=== PATIENT | female | born 1965 | race Caucasian/White ===

== ENCOUNTER 2017-07-17 17:59 | Inpatient (IN) ==
--- NOTE | 2017-07-17 18:23 | Emergency Department Note ---
Disposition Clinical Impression: Hyponatremia, Hyperglycemia Altered mental status Qualifiers: Altered mental status type: unspecified Qualified Code(s): R41.82 - Altered mental status, unspecified Suicidal behavior Qualifiers: Attempted self-injury: without attempted self-injury Qualified Code(s): R46.89 - Other symptoms and signs involving appearance and behavior Disposition: Admitted As Inpatient Condition: Good Referrals: NONE,PCP [Primary Care Provider] - Forms: ED Satisfaction Letter, Work/School Release General Adult HPI - General Chief complaint: ED General Medical Stated complaint: psych Time Seen by Provider: 07/17/17 18:08 Source: EMS Mode of arrival: EMS Limitations: altered mental status Nursing Notes Reviewed: Yes Vital Signs Reviewed: Yes - History of Present Illness HPI Narrative: 51-year-old female with a history of diabetes, bipolar disorder who presents to the ER via EMS due to altered mental status and hyperglycemia. History is obtained from EMS. Reports earlier in the day there was concern that the patient was in the passenger seat of the car and grabbed the steering well attempting perhaps to be rhythm off the road. She went home after that. Reports that she has not had her diabetic medications in 2 days. EMS was called and the patient was brought in for evaluation. Her prehospital glucose was over 300. Upon arrival she is alert answering questions appropriately intermittently however she demonstrates thought blocking and attempts to get out of the bed multiple times. She has discussed suicidal ideation to several staff here denies it specifically to me. No other complaints. Pt Subjective Complaint: Altered mental status Onset (ago): unknown Pain Scale: 0 Improves with: nothing Worsens with: nothing - Related Data Home Medications Medication Instructions Recorded Confirmed Albuterol Sulfate [Albuterol 1 puff IH Q4HR 09/03/16 09/03/16 Inhaler] Aspirin Enteric Coated [Aspirin EC] 81 mg PO DAILY 09/03/16 09/03/16 Clopidogrel [Plavix] 75 mg PO DAILY 09/03/16 09/03/16 Insulin Glargine,Hum.rec.anlog 25 unit SQ DAILY 09/03/16 09/03/16 [Lantus Solostar] Isosorbide MONOnitrate (24 HR) 60 mg PO DAILY 09/03/16 09/03/16 [Imdur] Lisinopril [Zestril] 10 mg PO DAILY 09/03/16 09/03/16 Metoprolol Tartrate [Lopressor] 50 mg PO BID 09/03/16 09/03/16 RisperiDONE MICROSPHERES 50 mg IJ AD 09/03/16 09/03/16 [Risperdal Consta] Simvastatin [Zocor] 40 mg PO DAILY 09/03/16 09/03/16 Allergies Allergy/AdvReac Type Severity Reaction Status Date / Time duloxetine [From Cymbalta] AdvReac Vomiting Verified 09/03/16 10:00 Limitations: ROS unobtainable due to patients medical condition Past Medical History - Past Medical History Attestation: Yes The following information was validated with the patient. Source: old records reviewed Medical history: Reports: coronary artery disease, diabetes, hypertension, myocardial infarction, renal disease Surgical history: Reports: coronary bypass (CABG) Psychiatric history: Reports: schizophrenia - Social History Smoking Status: Current every day smoker Smokeless Tobacco Status: No Alcohol use: Reports: none Drug use: Reports: none Physical Exam - General Limitations: altered mental status General appearance: alert, appears intoxicated - Head Head exam: atraumatic, normocephalic - Eye Eye exam: Present: normal appearance - ENT ENT exam: normal exam - Neck Neck exam: Present: normal inspection - Chest Chest inspection: Present: normal inspection, symmetric chest wall rise - Respiratory Respiratory exam: Present: normal lung sounds bilaterally - Cardiovascular Cardiovascular exam: Present: normal rhythm, tachycardia, normal heart sounds - Abdominal Exam Abdominal exam: Present: soft, Non-Tender. Absent: tenderness, distention, rigidity - Extremities Exam Extremities exam: Present: normal inspection, full ROM - Expanded Upper Extremity Exam Shoulder exam: Present: normal inspection, full ROM Arm exam: Present: normal inspection, full ROM Elbow exam: Present: normal inspection, full ROM Forearm/Wrist exam: Present: normal inspection, full ROM Hand exam: Present: normal inspection, full ROM - Expanded Lower Extremity Exam Hip/Pelvis exam: Present: normal inspection, full ROM Upper leg exam: Present: normal inspection, full ROM Knee exam: Present: normal inspection, full ROM Lower leg exam: Present: normal inspection, full ROM Ankle exam: Present: normal inspection, full ROM Foot/toe exam: Present: normal inspection, full ROM - Neurological Exam Neurological exam: Present: alert, other (GCS 14. Nonfocal.) - Expanded Psychiatric Exam Expanded psych exam: Present: poor eye contact, perseverating, refuses to answer - Skin Skin exam: Present: warm, dry Course Course Narrative: Patient seen and examined. [place] slipped due to concern for earlier behavior as well as voicing suicidal ideation here. She is notably tachycardic at 1:30. Concern for potential DKA. We will get labs to evaluate for DKA as well as altered mental status including a head CT. - Reevaluation(s) Reevaluation #1: Family at bedside. Reports that she missed her wrist but also 4 days ago. She did try to grab the wheel and pull the car off the road. Reports that this happened before when her sodium is low. - Consultations Consultation #1: I spoke with the on-call service worker Dr. Suero. Discussed the patient's history and lab findings. He recommends to start fluid restriction. We will stop her IV fluids. He also recommends a urine osmolality. Vital Signs Temperature 97.8 F 07/17/17 18:06 Pulse Rate 129 07/17/17 18:06 Respiratory Rate 20 07/17/17 18:06 Blood Pressure 205/107 07/17/17 18:06 O2 Sat by Pulse Oximetry 95 07/17/17 18:06 Temperature 97.8 F 07/17/17 18:06 Pulse Rate 115 07/17/17 19:27 Respiratory Rate 14 07/17/17 19:27 Blood Pressure 181/88 07/17/17 19:27 O2 Sat by Pulse Oximetry 93 07/17/17 19:27 Oxygen Delivery Oxygen Delivery Room Air Medical Decision Making - [facility] Narrative Medical decision making narrative: 51-year-old female presents due to altered mental status. Concern for suicidal behavior. Mr. roach shot 4 days ago. Noted to be hyponatremic at 114 here with a prior history of psychogenic polydipsia. CT of the head negative. Labs reviewed and otherwise unremarkable. Hyperglycemic. Given IV insulin. Patient has center and pink slipped for suicidal ideation. She is admitted to the hospitalist service for further management. - Lab Data Lab results reviewed: Yes I reviewed the patient's lab results. Result diagrams: 07/17/17 18:11 07/17/17 18:11 Lab Results 07/17/17 07/17/17 07/17/17 Range/Units 18:11 18:11 18:11 WBC 12.6 H (4.3-11.1) K/mcL RBC 4.66 (3.82-4.97) M/mcL Hgb 13.2 (11.5-15.4) g/dL Hct 35.4 (35.3-44.9) % MCV 76.0 L (83.0-100.0) fL MCH 28.3 (28.0-33.3) pg MCHC 37.3 H (31.6-35.5) g/dL RDW 12.3 (11.5-14.5) % Plt Count 245 (140-400) K/mcL MPV 10.9 (9.4-12.4) fL Immature Gran % 0.5 (0-4) % Seg Neutrophils % 77.2 % Lymphocytes % 11.7 % Monocytes % 9.3 % Eosinophils % 1.0 % Basophils % 0.3 % Neutrophils # 9.7 H (1.6-8.9) K/mcL Lymphocytes # 1.5 (0.6-4.6) K/mcL Monocytes # 1.2 (0.0-1.3) K/mcL Eosinophils # 0.1 (0.0-0.6) K/mcL Basophils # 0.0 (0.0-0.2) K/mcL Immature Plt Fraction 8.0 H (1.1-6.1) % VBG pH (7.32-7.42) pH Units VBG pCO2 (41-51) mmHg VBG pO2 (25-50) mmHg VBG HCO3 (21-27) mEq/L Sodium 114 L* (136-145) mEq/L Potassium 3.6 (3.5-5.1) mEq/L Chloride 79 L (98-107) mEq/L Carbon Dioxide 21 L (23-29) mEq/L BUN 16 (6-20) mg/dL Creatinine 1.13 (0.60-1.20) mg/dL Est GFR ( Amer) > 60 (> 60) Est GFR (Non-Af Amer) 51 L (> 60) BUN/Creatinine Ratio 14 (6-26) Glucose 353 H (70-105) mg/dL POC Glucose (70-99) mg/dL Calculated Osmolality 253 L (280-300) Lactic Acid (0.5-2.2) mmol/L Calcium 9.6 (8.6-10.3) mg/dL Magnesium 0.9 L (1.6-2.6) mg/dL Total Bilirubin 0.7 (0.3-1.0) mg/dL Direct Bilirubin 0.2 (0.0-0.2) mg/dL Indirect Bilirubin 0.5 (0.0-1.2) mg/dL AST 25 (13-39) Units/L ALT 18 (7-52) Units/L Alkaline Phosphatase 97 (34-104) Units/L Ammonia (16-53) mcmol/L Serum Total Protein 6.9 (6.4-8.9) g/dL Albumin 4.7 (3.5-5.7) g/dL Globulin 2.2 L (2.4-3.5) g/dL Albumin/Globulin Ratio 2.1 (1.1-2.2) Beta-Hydroxybutyric Acd 0.21 (0.02-0.27) mmol/L TSH 0.994 (0.340-5.600) mcIU/mL Urine Color (Yellow) Urine Clarity (Clear) Urine pH (5.0-8.0) pH Units Ur Specific [place] (1.010-1.025) Urine Protein (Neg-Trace) mg/dL Urine Glucose (UA) (Normal) mg/dL Urine Ketones (Negative) mg/dL Urine Blood (Negative) Urine Nitrite (Negative) Urine Bilirubin (Negative) Urine Urobilinogen (Normal) mg/dL Ur Leukocyte Esterase (Negative) Urine Microscopic RBC (0-3) per hpf Urine Microscopic WBC (0-3) per hpf Ur Squamous Epith Cells (None-Few) per lpf Urine Bacteria (None-Few) per hpf Hyaline Casts (None-Few) per lpf Ur Culture Indicated? (NO) Urine Test (Negative) Salicylates < 2.5 L (15.0-30.0) mg/dL Urine Opiates Screen (Jyrtdz=693) ng/mL Acetaminophen < 10 L (10-20) mcg/mL Ur Barbiturates Screen (Chmest=950) ng/mL Ur Phencyclidine Scrn (Cutoff=25) ng/mL Ur Amphetamines Screen (Ibmbwi=6012) ng/mL U Benzodiazepines Scrn (Kfgfke=039) ng/mL Urine Cocaine Screen (Cutoff= 300) ng/mL U Marijuana (THC) Screen (Cutoff = 50) ng/mL Ethyl Alcohol < 10 (Less than 10) mg/dL 07/17/17 07/17/17 07/17/17 Range/Units 18:11 18:11 18:28 WBC (4.3-11.1) K/mcL RBC (3.82-4.97) M/mcL Hgb (11.5-15.4) g/dL Hct (35.3-44.9) % MCV (83.0-100.0) fL MCH (28.0-33.3) pg MCHC (31.6-35.5) g/dL RDW (11.5-14.5) % Plt Count (140-400) K/mcL MPV (9.4-12.4) fL Immature Gran % (0-4) % Seg Neutrophils % % Lymphocytes % % Monocytes % % Eosinophils % % Basophils % % Neutrophils # (1.6-8.9) K/mcL Lymphocytes # (0.6-4.6) K/mcL Monocytes # (0.0-1.3) K/mcL Eosinophils # (0.0-0.6) K/mcL Basophils # (0.0-0.2) K/mcL Immature Plt Fraction (1.1-6.1) % VBG pH (7.32-7.42) pH Units VBG pCO2 (41-51) mmHg VBG pO2 (25-50) mmHg VBG HCO3 (21-27) mEq/L Sodium (136-145) mEq/L Potassium (3.5-5.1) mEq/L Chloride (98-107) mEq/L Carbon Dioxide (23-29) mEq/L BUN (6-20) mg/dL Creatinine (0.60-1.20) mg/dL Est GFR ( Amer) (> 60) Est GFR (Non-Af Amer) (> 60) BUN/Creatinine Ratio (6-26) Glucose (70-105) mg/dL POC Glucose 335 H (70-99) mg/dL Calculated Osmolality (280-300) Lactic Acid 1.8 (0.5-2.2) mmol/L Calcium (8.6-10.3) mg/dL Magnesium (1.6-2.6) mg/dL Total Bilirubin (0.3-1.0) mg/dL Direct Bilirubin (0.0-0.2) mg/dL Indirect Bilirubin (0.0-1.2) mg/dL AST (13-39) Units/L ALT (7-52) Units/L Alkaline Phosphatase (34-104) Units/L Ammonia 25 (16-53) mcmol/L Serum Total Protein (6.4-8.9) g/dL Albumin (3.5-5.7) g/dL Globulin (2.4-3.5) g/dL Albumin/Globulin Ratio (1.1-2.2) Beta-Hydroxybutyric Acd (0.02-0.27) mmol/L TSH (0.340-5.600) mcIU/mL Urine Color (Yellow) Urine Clarity (Clear) Urine pH (5.0-8.0) pH Units Ur Specific [place] (1.010-1.025) Urine Protein (Neg-Trace) mg/dL Urine Glucose (UA) (Normal) mg/dL Urine Ketones (Negative) mg/dL Urine Blood (Negative) Urine Nitrite (Negative) Urine Bilirubin (Negative) Urine Urobilinogen (Normal) mg/dL Ur Leukocyte Esterase (Negative) Urine Microscopic RBC (0-3) per hpf Urine Microscopic WBC (0-3) per hpf Ur Squamous Epith Cells (None-Few) per lpf Urine Bacteria (None-Few) per hpf Hyaline Casts (None-Few) per lpf Ur Culture Indicated? (NO) Urine Test (Negative) Salicylates (15.0-30.0) mg/dL Urine Opiates Screen (Sncdij=299) ng/mL Acetaminophen (10-20) mcg/mL Ur Barbiturates Screen (Zlvqrp=783) ng/mL Ur Phencyclidine Scrn (Cutoff=25) ng/mL Ur Amphetamines Screen (Xzhwbd=0883) ng/mL U Benzodiazepines Scrn (Dlfjeh=366) ng/mL Urine Cocaine Screen (Cutoff= 300) ng/mL U Marijuana (THC) Screen (Cutoff = 50) ng/mL Ethyl Alcohol (Less than 10) mg/dL 07/17/17 07/17/17 07/17/17 Range/Units 18:31 19:11 19:11 WBC (4.3-11.1) K/mcL RBC (3.82-4.97) M/mcL Hgb (11.5-15.4) g/dL Hct (35.3-44.9) % MCV (83.0-100.0) fL MCH (28.0-33.3) pg MCHC (31.6-35.5) g/dL RDW (11.5-14.5) % Plt Count (140-400) K/mcL MPV (9.4-12.4) fL Immature Gran % (0-4) % Seg Neutrophils % % Lymphocytes % % Monocytes % % Eosinophils % % Basophils % % Neutrophils # (1.6-8.9) K/mcL Lymphocytes # (0.6-4.6) K/mcL Monocytes # (0.0-1.3) K/mcL Eosinophils # (0.0-0.6) K/mcL Basophils # (0.0-0.2) K/mcL Immature Plt Fraction (1.1-6.1) % VBG pH 7.43 H (7.32-7.42) pH Units VBG pCO2 35 L (41-51) mmHg VBG pO2 91 H (25-50) mmHg VBG HCO3 23 (21-27) mEq/L Sodium (136-145) mEq/L Potassium (3.5-5.1) mEq/L Chloride (98-107) mEq/L Carbon Dioxide (23-29) mEq/L BUN (6-20) mg/dL Creatinine (0.60-1.20) mg/dL Est GFR ( Amer) (> 60) Est GFR (Non-Af Amer) (> 60) BUN/Creatinine Ratio (6-26) Glucose (70-105) mg/dL POC Glucose (70-99) mg/dL Calculated Osmolality (280-300) Lactic Acid (0.5-2.2) mmol/L Calcium (8.6-10.3) mg/dL Magnesium (1.6-2.6) mg/dL Total Bilirubin (0.3-1.0) mg/dL Direct Bilirubin (0.0-0.2) mg/dL Indirect Bilirubin (0.0-1.2) mg/dL AST (13-39) Units/L ALT (7-52) Units/L Alkaline Phosphatase (34-104) Units/L Ammonia (16-53) mcmol/L Serum Total Protein (6.4-8.9) g/dL Albumin (3.5-5.7) g/dL Globulin (2.4-3.5) g/dL Albumin/Globulin Ratio (1.1-2.2) Beta-Hydroxybutyric Acd (0.02-0.27) mmol/L TSH (0.340-5.600) mcIU/mL Urine Color Yellow (Yellow) Urine Clarity Clear (Clear) Urine pH 5.0 (5.0-8.0) pH Units Ur Specific [place] 1.014 (1.010-1.025) Urine Protein Negative (Neg-Trace) mg/dL Urine Glucose (UA) >=1000 H (Normal) mg/dL Urine Ketones Negative (Negative) mg/dL Urine Blood Small H (Negative) Urine Nitrite Negative (Negative) Urine Bilirubin Negative (Negative) Urine Urobilinogen Normal (Normal) mg/dL Ur Leukocyte Esterase Negative (Negative) Urine Microscopic RBC 0-3 (0-3) per hpf Urine Microscopic WBC 0-3 (0-3) per hpf Ur Squamous Epith Cells Moderate H (None-Few) per lpf Urine Bacteria None Seen (None-Few) per hpf Hyaline Casts None Seen (None-Few) per lpf Ur Culture Indicated? NO (NO) Urine Test (Negative) Salicylates (15.0-30.0) mg/dL Urine Opiates Screen Negative (Gaiplf=163) ng/mL Acetaminophen (10-20) mcg/mL Ur Barbiturates Screen Negative (Blhmjk=015) ng/mL Ur Phencyclidine Scrn Negative (Cutoff=25) ng/mL Ur Amphetamines Screen Negative (Nrdamo=9439) ng/mL U Benzodiazepines Scrn Negative (Aboaxe=656) ng/mL Urine Cocaine Screen Negative (Cutoff= 300) ng/mL U Marijuana (THC) Screen Negative (Cutoff = 50) ng/mL Ethyl Alcohol (Less than 10) mg/dL 07/17/17 Range/Units 19:11 WBC (4.3-11.1) K/mcL RBC (3.82-4.97) M/mcL Hgb (11.5-15.4) g/dL Hct (35.3-44.9) % MCV (83.0-100.0) fL MCH (28.0-33.3) pg MCHC (31.6-35.5) g/dL RDW (11.5-14.5) % Plt Count (140-400) K/mcL MPV (9.4-12.4) fL Immature Gran % (0-4) % Seg Neutrophils % % Lymphocytes % % Monocytes % % Eosinophils % % Basophils % % Neutrophils # (1.6-8.9) K/mcL Lymphocytes # (0.6-4.6) K/mcL Monocytes # (0.0-1.3) K/mcL Eosinophils # (0.0-0.6) K/mcL Basophils # (0.0-0.2) K/mcL Immature Plt Fraction (1.1-6.1) % VBG pH (7.32-7.42) pH Units VBG pCO2 (41-51) mmHg VBG pO2 (25-50) mmHg VBG HCO3 (21-27) mEq/L Sodium (136-145) mEq/L Potassium (3.5-5.1) mEq/L Chloride (98-107) mEq/L Carbon Dioxide (23-29) mEq/L BUN (6-20) mg/dL Creatinine (0.60-1.20) mg/dL Est GFR ( Amer) (> 60) Est GFR (Non-Af Amer) (> 60) BUN/Creatinine Ratio (6-26) Glucose (70-105) mg/dL POC Glucose (70-99) mg/dL Calculated Osmolality (280-300) Lactic Acid (0.5-2.2) mmol/L Calcium (8.6-10.3) mg/dL Magnesium (1.6-2.6) mg/dL Total Bilirubin (0.3-1.0) mg/dL Direct Bilirubin (0.0-0.2) mg/dL Indirect Bilirubin (0.0-1.2) mg/dL AST (13-39) Units/L ALT (7-52) Units/L Alkaline Phosphatase (34-104) Units/L Ammonia (16-53) mcmol/L Serum Total Protein (6.4-8.9) g/dL Albumin (3.5-5.7) g/dL Globulin (2.4-3.5) g/dL Albumin/Globulin Ratio (1.1-2.2) Beta-Hydroxybutyric Acd (0.02-0.27) mmol/L TSH (0.340-5.600) mcIU/mL Urine Color (Yellow) Urine Clarity (Clear) Urine pH (5.0-8.0) pH Units Ur Specific [place] (1.010-1.025) Urine Protein (Neg-Trace) mg/dL Urine Glucose (UA) (Normal) mg/dL Urine Ketones (Negative) mg/dL Urine Blood (Negative) Urine Nitrite (Negative) Urine Bilirubin (Negative) Urine Urobilinogen (Normal) mg/dL Ur Leukocyte Esterase (Negative) Urine Microscopic RBC (0-3) per hpf Urine Microscopic WBC (0-3) per hpf Ur Squamous Epith Cells (None-Few) per lpf Urine Bacteria (None-Few) per hpf Hyaline Casts (None-Few) per lpf Ur Culture Indicated? (NO) Urine Test Negative (Negative) Salicylates (15.0-30.0) mg/dL Urine Opiates Screen (Vfncmw=654) ng/mL Acetaminophen (10-20) mcg/mL Ur Barbiturates Screen (Nvyapj=080) ng/mL Ur Phencyclidine Scrn (Cutoff=25) ng/mL Ur Amphetamines Screen (Wxdtmb=6902) ng/mL U Benzodiazepines Scrn (Cffbck=069) ng/mL Urine Cocaine Screen (Cutoff= 300) ng/mL U Marijuana (THC) Screen (Cutoff = 50) ng/mL Ethyl Alcohol (Less than 10) mg/dL - Radiology Data Radiology results reviewed: Yes I reviewed the patient's radiology results. Head CT 07/17/17 18:19 IMPRESSION: No acute intracranial abnormality. Dinh chronic sinusitis D/ / Andrew Chavez MD / Andrew Chavez MD Interpreting Provider: Andrew Chavez MD - EKG Data EKG #1 EKG attestation: Yes I reviewed and interpreted this EKG. EKG results narrative: EKG demonstrates sinus tachycardia with a rate of 127. Normal axis. Normal intervals. Normal R-wave progression. No gross ST elevations or depressions. No acute ischemic findings. No significant changes from previous EKG dated . S.B.A.R. - S.B.A.Karen. Situation: Demographics, MOA Background: Presenting Complaint, Relevant PMH, Meds, & Allergies Assessment: Course and respsone to treatment, Exam Concerns, Patient/Family Expectation, Pertinant Lab Results Recommendation: Barrier(s) to disposition, Recommendation based on pending studies, treatments, or consults SYinAMandi Report Given to: Dr. Idania Lu Repor Time: 20:14
[2017-07-17] MEDS ORDERED: 0.9 % Sodium Chloride 1,000 ML ONE (18:25)
[2017-07-17] MEDS: 0.9 % Sodium Chloride 1,000 ML IVC SCH (18:26)
[2017-07-17 18:33] LABS: VBG HCO3 23 mEq/L (21-27); VBG PCO2 35 mmHg (41-51); VBG PH 7.43 pH Units (7.32-7.42); VBG PO2 91 mmHg (25-50)
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
[2017-07-17 18:57] LABS: Acetaminophen < 10 mcg/mL (10-20)
[2017-07-17 19:01] LABS: Alanine Aminotransferase 18 Units/L (7-52); Albumin 4.7 g/dL (3.5-5.7); Albumin/Globulin Ratio 2.1 (1.1-2.2); Alkaline Phosphatase 97 Units/L (34-104); Aspartate Amino Transferase 25 Units/L (13-39); BUN/Creatinine Ratio 14 (6-26); Bilirubin,Direct 0.2 mg/dL (0.0-0.2); Bilirubin,Indirect 0.5 mg/dL (0.0-1.2); Bilirubin,Total 0.7 mg/dL (0.3-1.0); Blood Urea Nitrogen 16 mg/dL (6-20); Calcium 9.6 mg/dL (8.6-10.3); Carbon Dioxide 21 mEq/L (23-29); Chloride 79 mEq/L (98-107); Ethanol < 10 mg/dL (Less than 10); Globulin 2.2 g/dL (2.4-3.5); Glucose 353 mg/dL (70-105); Magnesium 0.9 mg/dL (1.6-2.6); Osmolality,Calculated 253 (280-300); Potassium 3.6 mEq/L (3.5-5.1); Salicylate < 2.5 mg/dL (15.0-30.0); Sodium 114 mEq/L (136-145); Total Protein 6.9 g/dL (6.4-8.9); eGFR For African Americans > 60 (> 60); eGFR For Non-African Americans 51 (> 60)
[2017-07-17 19:03] LABS: Basophils % 0.3 %; Eosinophils # 0.1 K/mcL (0.0-0.6); Hematocrit 35.4 % (35.3-44.9); Hemoglobin 13.2 g/dL (11.5-15.4); Immature Granulocytes % 0.5 % (0-4); Lymphocytes # 1.5 K/mcL (0.6-4.6); Lymphocytes % 11.7 %; Mean Corpuscular Hemoglobin 28.3 pg (28.0-33.3); Mean Platelet Volume 10.9 fL (9.4-12.4); Monocytes # 1.2 K/mcL (0.0-1.3); Monocytes % 9.3 %; Neutrophils # 9.7 K/mcL (1.6-8.9); Platelet Count 245 K/mcL (140-400); Red Blood Count 4.66 M/mcL (3.82-4.97); Red Cell Distribution Width 12.3 % (11.5-14.5); Segmented Neutrophils % 77.2 %
[2017-07-17 19:05] LABS: Mean Corpuscular HGB Conc 37.3 g/dL (31.6-35.5)
[2017-07-17 19:09] LABS: Thyroid Stimulating Hormone 0.994 mcIU/mL (0.340-5.600)
[2017-07-17 19:29] LABS: Bilirubin,Urine Negative (Negative); Blood,Urine Small (Negative); Clarity,Urine Clear (Clear); Color,Urine Yellow (Yellow); Glucose,Urine (UA) >=1000 mg/dL (Normal); Ketones,Urine Negative (Negative); Leukocyte Esterase,Urine Negative (Negative); Nitrite,Urine Negative (Negative); Protein,Urine Negative (Neg-Trace); Specific Gravity,Urine 1.014 (1.010-1.025); Urobilinogen,Urine Normal (Normal)
[2017-07-17 19:39] LABS: Amphetamine Screen,Urine Negative ng/mL (Cutoff=1000); Barbiturate Screen,Urine Negative ng/mL (Cutoff=200); Benzodiazepines Screen,Urine Negative ng/mL (Cutoff=200); Cannabinoid Screen,Urine Negative ng/mL (Cutoff = 50); Cocaine Screen,Urine Negative ng/mL (Cutoff= 300); Opiate Screen,Urine Negative ng/mL (Cutoff=300); Phencyclidine Screen,Urine Negative ng/mL (Cutoff=25)
[2017-07-17] MEDS ORDERED: Insulin Regular, Human 100 UNIT/ML IV ONE (19:57)
[2017-07-17 20:02] LABS: Bacteria,Urine None Seen per hpf (None-Few); Hyaline Casts,Urine None Seen per lpf (None-Few); RBC,Urine 0-3 per hpf (0-3); Squamous Epithelial Cell,Urine Moderate per lpf (None-Few); WBC,Urine 0-3 per hpf (0-3)
[2017-07-18] MEDS ORDERED: *HR* Dextrose 50 % in Water (Syg) 50 ML SYRINGE IVP PRN (01:17)
[2017-07-18] MEDS ORDERED: Dextrose Gel 15 GM/37.5 ML TUBE PO PRN ×2 (01:17)
[2017-07-18] MEDS ORDERED: D5% in Water 1,000 ML IVC PRN (01:17)
[2017-07-18] MEDS ORDERED: Insulin Regular, Human 100 UNIT/ML SQ ONE (01:30)
[2017-07-18] MEDS ORDERED: OLANZapine 10 MG VIAL IM PRN (02:00)
[2017-07-18] MEDS ORDERED: *HR* Magnesium Sulfate 1 GM/2 ML VIAL IM STA ×2 (02:23→04:27)
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
[2017-07-18] MEDS ORDERED: Acetaminophen 325 MG TABLET PO PRN (03:37)
[2017-07-18] MEDS ORDERED: Naloxone 0.4 MG/ML INJ IVP PRN (03:37)
[2017-07-18] MEDS: Insulin DETEMIR 100 UNIT/ML X5UNITS SQ SCH ×2 (03:45→23:09)
[2017-07-18] MEDS: Insulin LISPRO 300 UNITS/3 ML VIAL SQ SCH ×6 (03:46→21:31)
[2017-07-18] MEDS ORDERED: *HR* Enoxaparin 40 MG/0.4 ML SYRINGE SQ SCH (06:00)
[2017-07-18 06:47] LABS: Eosinophils % 1.2 %; Red Cell Distribution Width 12.3 % (11.5-14.5)
[2017-07-18 06:48] LABS: Basophils # 0.1 K/mcL (0.0-0.2); Basophils % 0.4 %; Eosinophils # 0.2 K/mcL (0.0-0.6); Hematocrit 38.4 % (35.3-44.9); Hemoglobin 14.2 g/dL (11.5-15.4); Immature Granulocytes % 0.4 % (0-4); Lymphocytes # 2.1 K/mcL (0.6-4.6); Lymphocytes % 13.7 %; Mean Corpuscular Hemoglobin 28.1 pg (28.0-33.3); Mean Corpuscular Volume 75.9 fL (83.0-100.0); Mean Platelet Volume 10.4 fL (9.4-12.4); Monocytes # 1.4 K/mcL (0.0-1.3); Monocytes % 8.9 %; Neutrophils # 11.6 K/mcL (1.6-8.9); Platelet Count 262 K/mcL (140-400); Red Blood Count 5.06 M/mcL (3.82-4.97); Segmented Neutrophils % 75.4 %
[2017-07-18 07:14] LABS: BUN/Creatinine Ratio 13 (6-26); Blood Urea Nitrogen 12 mg/dL (6-20); Calcium 9.8 mg/dL (8.6-10.3); Carbon Dioxide 25 mEq/L (23-29); Chloride 82 mEq/L (98-107); Glucose 177 mg/dL (70-105); Magnesium 2.2 mg/dL (1.6-2.6); Osmolality,Calculated 246 (280-300); Potassium 3.5 mEq/L (3.5-5.1); Sodium 116 mEq/L (136-145); eGFR For African Americans > 60 (> 60); eGFR For Non-African Americans > 60 (> 60)
[2017-07-18] MEDS ORDERED: Insulin LISPRO 300 UNITS/3 ML VIAL SQ SCH ×2 (07:30→21:00)
--- NOTE | 2017-07-18 08:33 | Event Note ---
Date of Encounter: 07/18/17 Time of Encounter: 08:30 Seen and assessed. Agree with plan per night time hospitalist. Being managed for acute encephalopathy bitaley 2/2 to metabolic derangements vs worsening of underlying pscyh disorder. Contnue Zyprexa. Psych recs appreciated. start on half normal saline for hyponatremia and aim to correct sodium at increments of 4 -6 over 24hrs. Nephrology recs appreciated WBC count also continues to trend up, query sepsis, obtain blood cultures, cxr, start on zosyn empirically. Pt also noted to be tachycardic with increased WBC. Etiology could be sepsis vs dehydration. Continue iV fluids and abx. TSH WNL
--- NOTE | 2017-07-18 08:50 | Electrocardiograph Report ---
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
[2017-07-18 09:11] LABS: Estimated Average Glucose 197 mg/dl; Hemoglobin A1C 8.5 %
--- NOTE | 2017-07-18 09:56 | Nephrology Consult Note ---
Date of Encounter: 07/18/17 Time of Encounter: 09:53 Assessment and Plan (1) Hyponatremia Current Visit: Yes Status: Acute Patient has a history of chronic hyponatremia in the setting of psychiatric illness. She had been on Risperdal which has an incidence of hyponatremia of less than 1%. She reports a vague history but may have a component of polydipsia. Her urine osmolality is inappropriately concentrated. 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 Regarding her recheck thyroid studies as well as adrenal studies to make sure they with are within normal limits. Treatment should consist of fluid restriction of 7503-3575 mL per day. I think we can place her on normal saline and monitor her electrolytes every 6 hours or so. I would not advise placing her on half normal saline because that would just continue to give her excess free water. (2) Bipolar disease, chronic Current Visit: Yes Status: Chronic History of Present Illness - History of Present Illness This is a 51-year-old female who was brought regimen by her family because of mental status changes. History also makes note of some nausea vomiting and decreased oral intake. Patient was noted to have worsening hyponatremia. Her sodium usually ranges from 121-127. This is in the setting of bipolar disorder , schizophrenia, and possible polydipsia. Sodium on admission was 113. Sodium this morning is 116. BUN/creatinine are normal. Potassium is 3.5. Urine osmolality was inappropriately high at 282 but urine glucose was greater than 1000. Patient apparently has poorly controlled diabetes. Vital signs been stable. Patient had a similar episode requiring hospitalization back in September 2016. At that time urine osmolality was 348. Patient takes Risperdal at home. She is currently on Zyprexa. Past Med Surg Social Fam HX - Past Medical History Medical history: coronary artery disease, diabetes, hypertension, myocardial infarction, renal disease Psychiatric history: bipolar, schizophrenia - Past Surgical History Surgical History: coronary bypass (CABG) - Social History Smoking Status: Current every day smoker Smokeless Tobacco Status: No Alcohol use: none Drug use: none Medications and Allergies Aspirin Enteric Coated [Aspirin EC] 81 mg PO DAILY 09/03/16 [History] Clopidogrel [Plavix] 75 mg PO DAILY 09/03/16 [History] Insulin Glargine,Hum.rec.anlog [Lantus Solostar] 25 unit SQ DAILY 09/03/16 [ History] Isosorbide MONOnitrate (24 HR) [Imdur] 60 mg PO DAILY 09/03/16 [History] Lisinopril [Zestril] 10 mg PO DAILY 09/03/16 [History] RisperiDONE MICROSPHERES [Risperdal Consta] 50 mg IJ 2XW 09/03/16 [History] Simvastatin [Zocor] 40 mg PO DAILY 09/03/16 [History] 3 Allergy/AdvReac Type Severity Reaction Status Date / Time duloxetine [From Cymbalta] AdvReac Vomiting Verified 09/03/16 10:00 Review of Systems ROS unobtainable: due to mental status Exam - Vital Signs Vital signs: Initial Vital Signs Temp Pulse Resp BP Pulse Ox 97.8 F 129 20 205/107 95 07/17/17 18:06 07/17/17 18:06 07/17/17 18:06 07/17/17 18:06 07/17/17 18:06 Vital Signs - Last 8 Hours Pulse Resp BP Pulse Ox 07/18/17 06:13 107 20 136/86 97 Intake and Output 07/17/17 07/18/17 07/18/17 23:59 07:59 15:59 Intake Total 360 / 360 Balance 360 / 360 Intake: Oral 360 / 360 Other: # Voids 2 Blood Glucose* 139 87 - General Appearance Exam: Patient is seen in the emergency room. She appears alert. She is somewhat oriented. She however is very vague when it comes to giving any kind of history. Lungs clear to auscultation. Heart regular rate and rhythm was sinus tach at a rate of 125. Abdomen shows normal bowel sounds bruits masses or megaly or tenderness. Lower extremities show no peripheral edema. Results - Lab Results 07/18/17 06:16 07/18/17 06:16 Most recent lab results Calcium 9.8 mg/dL (8.6-10.3) 07/18/17 06:16 Magnesium 2.2 mg/dL (1.6-2.6) 07/18/17 06:16 Consult Discharge Plan - Plan Referrals: NONE,PCP [Primary Care Provider] -
[2017-07-18] MEDS ORDERED: Cosyntropin 250 MCG/2 ML VIAL IVP ONE (09:58)
[2017-07-18] MEDS: Piperacillin/Tazobactam 3.375 GM in 0.9 % Sodium Chloride Mini Bag 100 ML IVPB SCH ×2 (10:16→21:30)
[2017-07-18] MEDS: Aspirin Enteric Coated 81 MG Tablet PO SCH (10:17)
[2017-07-18] MEDS: Isosorbide MONOnitrate (24 HR) 60 MG TAB.ER.24H PO SCH (10:17)
[2017-07-18] MEDS ORDERED: Isovue-370 500 ML INFUS..BTL IV ONE (13:04)
[2017-07-18] MEDS ORDERED: *HR* Metoprolol 5 MG/5 ML VIAL IVP PRN (13:05)
[2017-07-18 13:52] LABS: Troponin I 0.17 ng/mL (< 0.04)
[2017-07-18] MEDS ORDERED: *HR* LORazepam 2 MG/ML VIAL IVP PRN (14:55)
--- NOTE | 2017-07-18 15:24 | Cardiology Consult Note ---
Date of Encounter: 07/18/17 Time of Encounter: 15:21 Assessment and Plan (1) NSTEMI (non-ST elevated myocardial infarction) Current Visit: Yes Status: Acute Initial trops .17 with ischemic LAD changes after BB for rate control. Currently chest pain free. Will start ASA and Heparin IV ACS protocol and repeat troponin as patient is not a reliable historian. Discussion w patient/family: The assessment and plan as outlined above was discussed with the patient and/or family members who expressed understanding and agreement. All questions were answered. Thank you for involving us in the care of your patient. Please call with any questions. History of Present Illness Consult date: 07/18/17 Consult reason: NSTEMI Chief complaint: Confusion History of present illness: Ms. Wilcox is a 51 year old female with hx of CABGx3 presents with confusion, and suicidal ideation found to have sinus tachycardia was given BB and this resulted in chest pain and flipped T waves right sided precordial leads. They are still persistent along with an initial troponin of .17. Currently she is asymtpomatic without any chest pain. EKG however is concerning for ischemia. Patient states has been having chest pain on and off in the past. She follows with Dr. Caballero as an OP. Past Med Surg Social Fam HX - Past Medical History Medical history: coronary artery disease, diabetes, hypertension, myocardial infarction, renal disease Psychiatric history: bipolar, schizophrenia - Past Surgical History Surgical History: coronary bypass (CABG) - Social History Smoking Status: Current every day smoker Smokeless Tobacco Status: No Alcohol use: none Drug use: none Medications and Allergies Aspirin Enteric Coated [Aspirin EC] 81 mg PO DAILY 09/03/16 [History] Clopidogrel [Plavix] 75 mg PO DAILY 09/03/16 [History] Insulin Glargine,Hum.rec.anlog [Lantus Solostar] 25 unit SQ DAILY 09/03/16 [ History] Isosorbide MONOnitrate (24 HR) [Imdur] 60 mg PO DAILY 09/03/16 [History] Lisinopril [Zestril] 10 mg PO DAILY 09/03/16 [History] RisperiDONE MICROSPHERES [Risperdal Consta] 50 mg IJ 2XW 09/03/16 [History] Simvastatin [Zocor] 40 mg PO DAILY 09/03/16 [History] 3 Allergy/AdvReac Type Severity Reaction Status Date / Time duloxetine [From Cymbalta] AdvReac Vomiting Verified 09/03/16 10:00 All Systems Review: The remainder of the systems were reviewed and are negative Physical Examination Vital Signs, Last 4 Hours Temp Pulse Resp BP Pulse Ox 07/18/17 13:53 98.1 F 87 18 125/73 98 General: Conversant, No Apparent Distress HEENT: Atraumatic, Normocephaly, Mucus Membranes Moist Neck: No JVD, Normal carotid pulses Cardiac: Reg Rate and Rhythm, Normal S1 and S2, No Murmur Lungs: Normal Breath Sounds, No Wheeze, Rales, Rhonchi Neuro: Alert and responsive, No focal deficits noted Abdomen: Soft, Non-Tender Skin: No rashes noted on visualized skin Musculoskeletal: No Chest Wall Tenderness Extremities: No Clubbing, No Cyanosis, No Edema, Normal Pulses Results 07/18/17 06:16 07/18/17 12:36 Lab Results 07/18/17 07/18/17 07/18/17 06:16 06:16 06:16 WBC 15.4 H Hgb 14.2 Hct 38.4 Plt Count 262 Sodium 119 L* 116 L* Potassium 3.5 Chloride 82 L Carbon Dioxide 25 BUN 12 Creatinine 0.90 Glucose 177 H Calcium 9.8 Magnesium 2.2 Troponin I TSH 1.010 07/18/17 12:36 WBC Hgb Hct Plt Count Sodium 117 L* Potassium Chloride Carbon Dioxide BUN Creatinine Glucose Calcium Magnesium Troponin I 0.17 H* TSH Consult Discharge Plan - Plan Referrals: NONE,PCP [Primary Care Provider] -
[2017-07-18] MEDS ORDERED: *HR* Heparin 5,000 UNIT/ML VIAL IVP PRN ×2 (15:40)
[2017-07-18] MEDS ORDERED: *HR* Heparin 5,000 UNIT/ML VIAL IVP ONE (15:40)
[2017-07-18] MEDS ORDERED: Heparin 25,000 UNIT/500 ML D5W 25,000 UNIT/500 ML BAG IVC SCH (15:45)
[2017-07-18] MEDS ORDERED: Aspirin 325 MG TABLET PO ONE (15:51)
[2017-07-18] MEDS: Aspirin 81 MG TAB.CHEW PO SCH (16:31)
[2017-07-18 16:55] LABS: INR 1.1; Prothrombin Time 12.2 Seconds (9.4-12.1)
[2017-07-18 16:57] LABS: Activated Partial Thrombo Time 35.3 Seconds (26.0-36.0)
[2017-07-18] MEDS ORDERED: *HR* Enoxaparin 80 MG/0.8 ML SYRINGE SQ SCH (18:00)
[2017-07-18] MEDS: 0.9 % Sodium Chloride 1,000 ML IVC SCH (19:09)
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
[2017-07-18] MEDS ORDERED: *HR* LORazepam 1 MG TABLET PO PRN (20:07)
[2017-07-18] MEDS: risperiDONE 1 MG TABLET PO SCH (21:29)
[2017-07-19] MEDS: Piperacillin/Tazobactam 3.375 GM in 0.9 % Sodium Chloride Mini Bag 100 ML IVPB SCH ×3 (02:51→17:46)
[2017-07-19] MEDS: Insulin LISPRO 300 UNITS/3 ML VIAL SQ SCH ×6 (02:59→22:06)
[2017-07-19 04:03] LABS: Basophils % 0.3 %; Eosinophils # 0.1 K/mcL (0.0-0.6); Hematocrit 33.2 % (35.3-44.9); Immature Granulocytes % 0.5 % (0-4); Lymphocytes # 1.8 K/mcL (0.6-4.6); Lymphocytes % 14.2 %; Mean Corpuscular Hemoglobin 29.1 pg (28.0-33.3); Mean Corpuscular Volume 78.5 fL (83.0-100.0); Mean Platelet Volume 10.4 fL (9.4-12.4); Monocytes % 8.1 %; Neutrophils # 9.8 K/mcL (1.6-8.9); Platelet Count 235 K/mcL (140-400); Red Blood Count 4.23 M/mcL (3.82-4.97); Red Cell Distribution Width 12.4 % (11.5-14.5); Segmented Neutrophils % 75.9 %
[2017-07-19 04:13] LABS: Hemoglobin 12.3 g/dL (11.5-15.4)
[2017-07-19 04:28] LABS: Calcium 8.5 mg/dL (8.6-10.3); Potassium 3.7 mEq/L (3.5-5.1)
[2017-07-19] MEDS: 0.9 % Sodium Chloride 1,000 ML IVC SCH ×3 (05:09→17:59)
--- NOTE | 2017-07-19 06:19 | Electrocardiograph Report ---
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
[2017-07-19] MEDS ORDERED: 0.9 % Sodium Chloride 500 ML IVC ONE (06:56)
[2017-07-19] MEDS ORDERED: Cosyntropin 250 MCG/2 ML VIAL IVP ONE (08:23)
[2017-07-19] MEDS: Aspirin Enteric Coated 81 MG Tablet PO SCH (09:19)
[2017-07-19] MEDS: risperiDONE 1 MG TABLET PO SCH ×2 (09:19→22:07)
--- NOTE | 2017-07-19 10:00 | Internal Med Progress Note ---
Date of Encounter: 07/19/17 Time of Encounter: 10:00 - Assessment and plan (1) NSTEMI (non-ST elevated myocardial infarction) Current Visit: Yes Status: Acute Assessment and plan: Complained of chest pain. EKG showed St segment depressions and troponins were elevated up to 0.17 but trending down. On ACS protocol with full dose anticoagulation. cardiology following. F/U 2D echo (2) Acute encephalopathy Current Visit: Yes Status: Acute Assessment and plan: Possibly metabolic from hyponatremia vs psych disorder. Continue iV fluids and risperidone per psych recs (3) Hyponatremia Current Visit: Yes Status: Acute Assessment and plan: Has a hx of chronic hyponatremia. Multifactorial may be 2/2 to antipsychotics vs polydipsia vs SIADH. F/U adrenal and thyroid workup. Continue normal saline and monitor electrolytes q 6hrs. (4) Leukocytosis Current Visit: Yes Status: Acute Assessment and plan: Had leukocytosis and was tachycardic. started on zosyn. Blood cultures negative. can d/c antibiotics after 3 days if pt is clinically not septic Qualifiers: Qualified Code(s): D72.829 - Elevated white blood cell count, unspecified (5) Suicidal behavior Current Visit: Yes Status: Acute Assessment and plan: Continue sitter. Psych following. Plan for transfer to inpatient psych once acute medical issues are resolved Qualifiers: Attempted self-injury: without attempted self-injury Qualified Code(s): R46.89 - Other symptoms and signs involving appearance and behavior (6) Hyperglycemia Current Visit: Yes Status: Acute Assessment and plan: continue insulin as needed. Monitor fingersticks (7) Diabetes mellitus Current Visit: Yes Status: Chronic Assessment and plan: Continue insulin Qualifiers: Diabetes mellitus type: type 2 Diabetes mellitus care home insulin use: without middle or intermediate school principal use Diabetes mellitus complication status: with unspecified complications Qualified Code(s): E11.8 - Type 2 diabetes mellitus with unspecified complications (8) Bipolar disease, chronic Current Visit: Yes Status: Chronic Assessment and plan: Continue mood stabilizers (9) DVT prophylaxis Current Visit: Yes Status: Acute Assessment and plan: on heparin drip (10) Hypomagnesemia Current Visit: Yes Status: Acute (11) CKD (chronic kidney disease) stage 3, GFR 30-59 ml/min Current Visit: Yes Status: Chronic Assessment and plan: Continue Iv fluids - Time Spent With Patient Total time spent is greater than 50% in coordination of care (as documented) at patient's floor/unit and/or counseling patient: - Subjective Interval history: No acute events overnight - Constitutional Vitals: Temp Pulse Resp BP Pulse Ox 97.8 F 79 16 74/54 88 07/19/17 06:42 07/19/17 06:42 07/19/17 06:42 07/19/17 06:42 07/19/17 06:42 General appearance: Present: cooperative, A&O X 3, pleasant, no acute distress, answers questions appropriately - Head Head exam: Present: atraumatic, normocephalic - Eye Eye exam: Present: PERRL, conjuntiva pink, sclera anicteric Pupils: Present: PERRL - Neck Neck exam general surgery: Present: supple, trachea midline. Absent: lymphadenopathy - Respiratory Respiratory exam: Present: CTAB. Absent: accessory muscle use, rales, rhonchi, wheezes - Cardiovascular Cardiovascular exam: Present: RRR, +S1, +S2. Absent: diastolic murmur, gallop, rubs, systolic murmur - GI/Abdominal GI/Abdominal exam: Present: normal bowel sounds, soft, no peritoneal signs. Absent: distended, tenderness - Extremities Exam Extremities exam: Present: warm, radial pulses palpable and symmetrical. Absent : calf tenderness, cyanotic, pedal edema - Neurological Exam Neurological exam: Present: CN II-XII intact, oriented X3, no focal deficits. Absent: pronater drift, facial droop, speech deficit - Skin Skin exam: Present: dry, intact Internal Medicine: Result - Labs CBC & Chem 7: 07/19/17 03:37 07/19/17 05:42 Labs: Short CBC 07/19/17 Range/Units 03:37 WBC 12.9 H (4.3-11.1) K/mcL Hgb 12.3 D (11.5-15.4) g/dL Hct 33.2 L (35.3-44.9) % Plt Count 235 (140-400) K/mcL Neutrophils # 9.8 H (1.6-8.9) K/mcL BMP 07/18/17 07/18/17 07/18/17 06:16 12:36 15:46 Sodium 116 L* 117 L* 117 L* Potassium 3.5 Chloride 82 L Carbon Dioxide 25 BUN 12 Creatinine 0.90 Glucose 177 H Calcium 9.8 07/19/17 07/19/17 07/19/17 00:17 03:37 05:42 Sodium 118 L* 117 L* 119 L* Potassium 3.7 Chloride 84 L Carbon Dioxide 26 BUN 18 Creatinine 1.41 H Glucose 139 H Calcium 8.5 L Cardiac Enzymes 07/18/17 07/18/17 07/18/17 Range/Units 12:36 15:46 21:37 Troponin I 0.17 H* 0.16 H* 0.11 H* (< 0.04) ng/mL 07/19/17 Range/Units 03:37 Troponin I 0.08 H* (< 0.04) ng/mL - ABG Interpretation ABG results: PT/INR, D-dimer PT 12.2 Seconds (9.4-12.1) H 07/18/17 15:40 - Impressions Impressions Chest CTA 07/18/17 13:04 IMPRESSION: No CT evidence pulmonary embolism. Minimal mostly dependent lower lobe airspace disease, likely atelectasis. 7 mm part solid ill-defined right lower lobe nodule, possibly infectious or inflammatory. See below for follow-up. RECOMMENDATIONS: Fleischner Society guidelines for follow-up and management of incidentally detected subsolid pulmonary nodules: Solitary part-solid nodules < 6 mm - No routine follow-up. > than or equal to 6 mm - CT at 3-6 to confirm persistence. If unchanged and solid component remains less than 6 mm, annual CT should be performed for 5 years. - Low risk patients include individuals with minimal or absent history of smoking and other known risk factors. - High risk patients include individuals with a history or smoking or known risk factors. Radiology 2017 http://pubs.rsna.org/doi/full/10.1148/radiol.[email or web address] D/ / Edwige Bobo Cha, MD / Edwige Bobo Cha, MD Interpreting Provider: Edwige Bobo Cha, MD Consult Discharge Plan - Plan Referrals: NONE,PCP [Primary Care Provider] -
--- NOTE | 2017-07-19 10:08 | Nephrology Progress Note ---
Date of Encounter: 07/19/17 Time of Encounter: 09:55 Subjective Interval history: A/P-chronic hyponatremia in setting psche illness, component of polydipsia. Urine inapproriately concentrated TSH in range, awaoiting adrenal studies. Continue fluid restriction. Renal fct worse, creat 1.41. Unclear though may be related to low BP. Decreased Metoprolol and stopped Lisinopril. Laying quietly in bed. Sitters at bedside. Pleasant. Wanting to drink more fluids. Objective - Vital Signs Vital signs: Vital Signs Temp Pulse Resp BP Pulse Ox 07/19/17 06:42 97.8 F 79 16 74/54 88 07/19/17 03:17 97.7 F 67 16 92 07/19/17 03:08 90/52 07/19/17 00:27 98.0 F 68 16 92/58 95 07/18/17 21:06 98.2 F 92 18 137/80 96 07/18/17 17:08 98.4 F 98 18 131/81 99 07/18/17 13:53 98.1 F 87 18 125/73 98 07/18/17 10:44 97.0 F L 109 18 148/79 96 Intake and Output 07/18/17 07/19/17 07/19/17 23:59 07:59 15:59 Intake Total 122 / 122 1419 / 1419 120 / 120 Output Total 600 / 600 600 / 600 Balance -478 / -478 819 / 819 120 / 120 Intake: IV Fluids 122 / 122 1179 / 1179 0.9 % Sodium Chloride 1,000 ML 1000 / 1000 @ 75 mls/hr IVC .[id number] [facility] Rx #:[id number] Heparin 25,000 UNIT/500 ML D5W 122 / 122 79 / 79 25,000 unit In 500 ml @ 12 UNIT /KG/HR 16.329 mls/hr IVC .Q24H [facility] Rx#:[id number] Zosyn 3.375 GM In 0.9 % Sodium 100 / 100 Chloride (Mini-Bag +) 100 ML @ 25 mls/hr IVPB Q8H [facility] Rx#: [id number] Oral 240 / 240 120 / 120 Output: Urine 600 / 600 600 / 600 Other: Meal Breakfast Percent of Meal Consumed 85% Weight 63.7 kg Blood Glucose* 112 118 Patient Weight 07/19/17 23:59 Weight 63.7 kg - General Appearance General appearance: Present: well-developed, well-nourished, appears started age EENT: Present: mucous membranes moist Respiratory: Present: wheezing Additional Comments: harsh Cardiology: Present: no edema, regular rate, regular rhythm Gastrointestinal: Present: normoactive bowel sounds, no tenderness Integumentary: Present: warm and dry - Lab 07/19/17 03:37 07/19/17 05:42 Most recent lab results Calcium 8.5 mg/dL (8.6-10.3) L 07/19/17 03:37 Magnesium 2.2 mg/dL (1.6-2.6) 07/18/17 06:16 Consult Discharge Plan - Plan Referrals: NONE,PCP [Primary Care Provider] -
--- NOTE | 2017-07-19 11:39 | Consult Note ---
Date of Encounter: 07/19/17 Time of Encounter: 11:30 Assessment & Recommendation (1) Schizophrenia Current visit: Yes Status: Acute Qualifiers: Schizophrenia type: paranoid schizophrenia Qualified Code(s): F20.0 - Paranoid schizophrenia (2) Confusion Current visit: Yes Status: Acute History of Present Illness Requesting Physician: Jose Solomon History of present illness: Pt is a 22 yo, , female, who presents for exacerbation of schizophrenia. Pt noted she has been noncompliant with medications. Pt noted she is back on her risperidone and doing well. Pt agreed to increase her current dose of risperidone to 2 mg PO BID for mood, pt was educated on risks benfits and side-effects of current medications. Patient is poor historian and difficult to get much reliable history. Pt denied any side effects to current medications. Pt noted she felt safe and comfortable on the unit. Pt was in agreement with treatment plan. Pt noted that she is doing better today. Pt noted she slept 8 hours last night. Pt noted her appetite is better. Pt rated her depression a 5, on a scale of zero to ten with ten being the worst and zero being none. Pt rate her anxiety a 10, on the same scale. Pt denied any visual or auditory hallucinations, however paranoia and confusion noted. Pt denied any thoughts to harm herself or anyone else. Tobacco: Denies Alcohol: Denies Street: Denies Caffeine: Denies MSE: Alert and Oriented x4 Appearance: neatly groomed dressed in appropriate civilian attire Behavior: friendly, courteous, polite Speech: Fluent, normal tone, normal rate Mood: depressed Affect: mood congruent Thought content: no HI noted, no SI noted, Questionable delusions noted Psychosis: noted visiual hallucinations. Thought Process: Linear coherent goal directed Judgment: poor. Insight: questionable. 1.Interval hx 2.Continue current medications 3.Review current labs 4.Pt had an opportunity to ask questions and discuss current treatment plan. 5.Supportive therapy was provided 6.Pt encouraged to consider group or individual therapy 7.Pt was in agreement with treatment plan. 8.Pt was educated on the risks benefits and side effects of current medications. 9.Increase risperidone to 2 mg PO BID for mood 10. Start Cogentin 1 mg pO QHS 11. Consider using sports drinks only due to exacerbation of hyponatremia CC: Jose Solomon Past Med Surg Social Fam HX - Past Medical History Medical history: coronary artery disease, diabetes, hypertension, myocardial infarction, renal disease - Past Psychiatric History Psychiatric history: Reports: schizophrenia Family psychiatric history: Yes Family History of Suicide: None - Past Surgical History Surgical History: coronary bypass (CABG) - Social History Smoking Status: Current every day smoker Smokeless Tobacco Status: No Alcohol use: none Drug use: none Medications & Allergies Aspirin Enteric Coated [Aspirin EC] 81 mg PO DAILY 09/03/16 [History] Clopidogrel [Plavix] 75 mg PO DAILY 09/03/16 [History] Insulin Glargine,Hum.rec.anlog [Lantus Solostar] 25 unit SQ DAILY 09/03/16 [ History] Isosorbide MONOnitrate (24 HR) [Imdur] 60 mg PO DAILY 09/03/16 [History] Lisinopril [Zestril] 10 mg PO DAILY 09/03/16 [History] RisperiDONE MICROSPHERES [Risperdal Consta] 50 mg IJ 2XW 09/03/16 [History] Simvastatin [Zocor] 40 mg PO DAILY 09/03/16 [History] 3 Allergy/AdvReac Type Severity Reaction Status Date / Time duloxetine [From Cymbalta] AdvReac Vomiting Verified 09/03/16 10:00 Review of Systems Constitutional: Denies: fever, chills, weakness, weight change Eyes: Denies: eye pain, vision change Ears, Nose, Throat: Denies: ear pain, throat pain, dental pain, hearing loss, congestion Cardiovascular: Denies: chest pain, palpitations, dyspnea on exertion Respiratory: Denies: cough, dyspnea, wheezes Gastrointestinal: Denies: abdominal pain, nausea, vomiting, diarrhea, constipation Genitourinary female: Denies: urgency, dysuria, frequency, abnormal menses, dyspareunia Musculoskeletal: Denies: joint swelling, joint pain Integumentary: Denies: rash, lesions, pruritus Neurological: Denies: headache, weakness, numbness, memory loss Psychiatric: Reports: irritability, other (paranoia, exacerbation of psychosis) Endocrine: Denies: fatigue, heat or cold intolerance Hematologic/Lymphatic: Denies: easy bruising, lymphadenopathy Allergic/Immunologic: Denies: urticaria, itchy eyes Psychiatry Exam - Constitutional Vitals: Temp Pulse Resp BP Pulse Ox 98.1 F 92 20 117/59 88 07/19/17 10:58 07/19/17 10:58 07/19/17 10:58 07/19/17 10:58 07/19/17 06:42 General appearance: well-groomed - Musculoskeletal Gait: normal - Psychiatric Patient Orientation: Yes Person, Yes Time, Yes Place, Yes Circumstance Level of alertness: Alert Behavior: calm, cooperative Psychomotor activity: Slowed Eye Contact: Maintains Eye Contact Mood Description: Euthymic/stable Affect description: congruent with mood Speech Volume: Normal Speech pattern: normal rhythm, normal tone, fluent, slowed Language & Vocabulary: consistent with education Thought Process: Circumstantial, Disorganized, [place], Slowed Thinking Thought Content: Yes Intact Attention Span Ability: Capable of Sustained Attention Memory Description: Grossly Intact Patient Reliability: Questionable Historian Fund of knowledge: Yes below average Intelligence Estimate: Below Average Judgment: Fair Insight: Partial Results - Labs Labs: Laboratory Last Values WBC 12.9 K/mcL (4.3-11.1) H 07/19/17 03:37 RBC 4.23 M/mcL (3.82-4.97) 07/19/17 03:37 Hgb 12.3 g/dL (11.5-15.4) D 07/19/17 03:37 Hct 33.2 % (35.3-44.9) L 07/19/17 03:37 MCV 78.5 fL (83.0-100.0) L 07/19/17 03:37 MCH 29.1 pg (28.0-33.3) 07/19/17 03:37 MCHC 37.0 g/dL (31.6-35.5) H 07/19/17 03:37 RDW 12.4 % (11.5-14.5) 07/19/17 03:37 Plt Count 235 K/mcL (140-400) 07/19/17 03:37 MPV 10.4 fL (9.4-12.4) 07/19/17 03:37 Immature Gran % 0.5 % (0-4) 07/19/17 03:37 Seg Neutrophils % 75.9 % 07/19/17 03:37 Lymphocytes % 14.2 % 07/19/17 03:37 Monocytes % 8.1 % 07/19/17 03:37 Eosinophils % 1.0 % 07/19/17 03:37 Basophils % 0.3 % 07/19/17 03:37 Neutrophils # 9.8 K/mcL (1.6-8.9) H 07/19/17 03:37 Lymphocytes # 1.8 K/mcL (0.6-4.6) 07/19/17 03:37 Monocytes # 1.0 K/mcL (0.0-1.3) 07/19/17 03:37 Eosinophils # 0.1 K/mcL (0.0-0.6) 07/19/17 03:37 Basophils # 0.0 K/mcL (0.0-0.2) 07/19/17 03:37 Immature Plt Fraction 8.0 % (1.1-6.1) H 07/17/17 18:11 PT 12.2 Seconds (9.4-12.1) H 07/18/17 15:40 INR 1.1 07/18/17 15:40 APTT 56.9 Seconds (26.0-36.0) H 07/19/17 05:42 VBG pH 7.43 pH Units (7.32-7.42) H 07/17/17 18:31 VBG pCO2 35 mmHg (41-51) L 07/17/17 18:31 VBG pO2 91 mmHg (25-50) H 07/17/17 18:31 VBG HCO3 23 mEq/L (21-27) 07/17/17 18:31 Sodium 119 mEq/L (136-145) L* 07/19/17 05:42 Potassium 3.7 mEq/L (3.5-5.1) 07/19/17 03:37 Chloride 84 mEq/L (98-107) L 07/19/17 03:37 Carbon Dioxide 26 mEq/L (23-29) 07/19/17 03:37 BUN 18 mg/dL (6-20) 07/19/17 03:37 Creatinine 1.41 mg/dL (0.60-1.20) H 07/19/17 03:37 Est GFR ( Amer) 47 (> 60) L 07/19/17 03:37 Est GFR (Non-Af Amer) 39 (> 60) L 07/19/17 03:37 BUN/Creatinine Ratio 13 (6-26) 07/19/17 03:37 Glucose 139 mg/dL (70-105) H 07/19/17 03:37 POC Glucose 118 mg/dL (70-99) H 07/19/17 06:45 Est Mean Plasma Glucose 197 mg/dl 07/18/17 02:09 Hemoglobin A1c 8.5 % (-5.6) H 07/18/17 02:09 Calculated Osmolality 248 (280-300) L 07/19/17 03:37 Lactic Acid 1.8 mmol/L (0.5-2.2) 07/17/17 18:11 Calcium 8.5 mg/dL (8.6-10.3) L 07/19/17 03:37 Magnesium 2.2 mg/dL (1.6-2.6) 07/18/17 06:16 Total Bilirubin 0.7 mg/dL (0.3-1.0) 07/17/17 18:11 Direct Bilirubin 0.2 mg/dL (0.0-0.2) 07/17/17 18:11 Indirect Bilirubin 0.5 mg/dL (0.0-1.2) 07/17/17 18:11 AST 25 Units/L (13-39) 07/17/17 18:11 ALT 18 Units/L (7-52) 07/17/17 18:11 Alkaline Phosphatase 97 Units/L (34-104) 07/17/17 18:11 Ammonia 25 mcmol/L (16-53) 07/17/17 18:11 Troponin I 0.08 ng/mL (< 0.04) H* 07/19/17 03:37 Serum Total Protein 6.9 g/dL (6.4-8.9) 07/17/17 18:11 Albumin 4.7 g/dL (3.5-5.7) 07/17/17 18:11 Globulin 2.2 g/dL (2.4-3.5) L 07/17/17 18:11 Albumin/Globulin Ratio 2.1 (1.1-2.2) 07/17/17 18:11 Beta-Hydroxybutyric Acd 0.61 mmol/L (0.02-0.27) H 07/18/17 02:08 TSH 1.010 mcIU/mL (0.340-5.600) 05/16/18 06:16 Cortisol Resp to ACTH 07/19/17 10:20 Urine Color Yellow (Yellow) 07/17/17 19:11 Urine Clarity Clear (Clear) 07/17/17 19:11 Urine pH 5.0 pH Units (5.0-8.0) 07/17/17 19:11 Ur Specific [place] 1.014 (1.010-1.025) 07/17/17 19:11 Urine Protein Negative mg/dL (Neg-Trace) 07/17/17 19:11 Urine Glucose (UA) >=1000 mg/dL (Normal) H 07/17/17 19:11 Urine Ketones Negative mg/dL (Negative) 07/17/17 19:11 Urine Blood Small (Negative) H 07/17/17 19:11 Urine Nitrite Negative (Negative) 07/17/17 19: Urine Bilirubin Negative (Negative) 07/17/17 19:11 Urine Urobilinogen Normal mg/dL (Normal) 07/17/17 19:11 Ur Leukocyte Esterase Negative (Negative) 07/17/17 19:11 Urine Microscopic RBC 0-3 per hpf (0-3) 07/17/17 19:11 Urine Microscopic WBC 0-3 per hpf (0-3) 07/17/17 19:11 Ur Squamous Epith Cells Moderate per lpf (None-Few) H 07/17/17 19:11 Urine Bacteria None Seen per hpf (None-Few) 07/17/17 19:11 Hyaline Casts None Seen per lpf (None-Few) 07/17/17 19:11 Ur Culture Indicated? NO (NO) 07/17/17 19:11 Urine Osmolality 242 mOsm/kg (300-1090) L 07/19/17 07:10 Urine Test Negative (Negative) 07/17/17 19:11 Salicylates < 2.5 mg/dL (15.0-30.0) L 07/17/17 18:11 Urine Opiates Screen Negative ng/mL (Cekmjq=090) 07/17/17 19:11 Acetaminophen < 10 mcg/mL (10-20) L 07/17/17 18:11 Ur Barbiturates Screen Negative ng/mL (Ygvemu=978) 07/17/17 19:11 Ur Phencyclidine Scrn Negative ng/mL (Cutoff=25) 07/17/17 19:11 Ur Amphetamines Screen Negative ng/mL (Mhysla=5737) 07/17/17 19:11 U Benzodiazepines Scrn Negative ng/mL (Cdxqrb=396) 07/17/17 19:11 Urine Cocaine Screen Negative ng/mL (Cutoff= 300) 07/17/17 19:11 U Marijuana (THC) Screen Negative ng/mL (Cutoff = 50) 07/17/17 19:11 Ethyl Alcohol < 10 mg/dL (Less than 10) 07/17/17 18:11 - Impressions Impressions Chest CTA 07/18/17 13:04 IMPRESSION: No CT evidence pulmonary embolism. Minimal mostly dependent lower lobe airspace disease, likely atelectasis. 7 mm part solid ill-defined right lower lobe nodule, possibly infectious or inflammatory. See below for follow-up. RECOMMENDATIONS: Fleischner Society guidelines for follow-up and management of incidentally detected subsolid pulmonary nodules: Solitary part-solid nodules < 6 mm - No routine follow-up. > than or equal to 6 mm - CT at 3-6 to confirm persistence. If unchanged and solid component remains less than 6 mm, annual CT should be performed for 5 years. - Low risk patients include individuals with minimal or absent history of smoking and other known risk factors. - High risk patients include individuals with a history or smoking or known risk factors. Radiology 2017 http://pubs.rsna.org/doi/full/10.1148/radiol.4054633255 D/ / Edwige Bobo Cha, MD / Edwige Bobo Cha, MD Interpreting Provider: Edwige Bobo Cha, MD Echocardiogram 07/18/17 13:44 Impressions: LVEF 70%. Normal LV chamber size and function. Mild concentric left ventricular hypertrophy. Mild left ventricular diastolic dysfunction. Atypical septal motion consistent with post-operative status. Normal right ventricular structure and function. Mild pulmonary hypertension. Estimated RVSP is 37 mmHg. No significant valvular dysfunction. Left Ventricular Wall Motion: Rest Echo Findings All wall segments showed normal motion. Findings: Study Quality * Technically adequate exam. ECG Findings * Sinus tachycardia. Left Ventricle * LVEF 70%. * Normal LV chamber size and function. * Mild concentric left ventricular hypertrophy. * Mild left ventricular diastolic dysfunction. * Atypical septal motion consistent with post-operative status. Right Ventricle * Normal right ventricular structure and function. Left Atrium * Normal left atrial size. Right Atrium * Normal right atrial size. Aortic Valve * Trileaflet aortic valve with normal function. * No aortic regurgitation. * No aortic stenosis. Mitral Valve * Normal mitral valve structure and function. * No mitral regurgitation. * No mitral stenosis. Tricuspid Valve * Normal tricuspid valve structure and function. * Trace tricuspid regurgitation. * Mild pulmonary hypertension. * Estimated RVSP is 37 mmHg. * Estimated RA pressure is 5 mmHg. Pulmonic Valve * Normal pulmonic valve structure and function. * Trace pulmonic regurgitation. Aorta * Normally sized aortic root. Pericardium * The pericardium appears normal. IVC * Normal IVC dimensions and inspiratory collapse. Pulmonary Artery * Normal visualized portions of the main pulmonary artery. Consult Discharge Plan - Plan Referrals: NONE,PCP [Primary Care Provider] -
[2017-07-19] MEDS: Isosorbide MONOnitrate (24 HR) 60 MG TAB.ER.24H PO SCH (12:22)
--- NOTE | 2017-07-19 13:32 | Cardiology Progress Note ---
Date of Encounter: 07/19/17 Time of Encounter: 13:00 Assessment and Plan (1) Elevated troponin Current Visit: Yes Status: Acute Mildly, adynamic troponin elevation in the setting of acute AMS secondary to hyponatremia (medication non-compliance), and JACK. Continues to have 1:1 sitting. No chest pain reported. ECG without ischemic changes. Heparin gtt has infused >24 hours, will stop and start DVT prophylaxis dosing. TTE demonstrated preserved LVEF with normal wall motion. No further cardiac recommendations as inpatient, consider outpatient stress test. Will coordinate follow-up with Dr. Caballero. Continue current CV medications including asa, statin, and BB. Patient is agreeable to plan. Discussion w patient/family: The assessment and plan as outlined above was discussed with the patient and/or family members who expressed understanding and agreement. All questions were answered. Thank you for involving us in the care of your patient. Please call with any questions. The patient was discussed and reviewed with Dr. Hudson; Cardiology will sign- off. Subjective Principal diagnosis: Elevated troponin Interval history: Seen and examined. Patient has no complaints upon exam--denies chest pain/discomfort, shortness of breath, or palpitations. Objective Vital Signs, Last 4 Hours Temp Pulse Resp BP 07/19/17 10:58 98.1 F 92 20 117/59 General: Conversant, No Apparent Distress HEENT: Atraumatic, Normocephaly Cardiac: Reg Rate and Rhythm, Normal S1 and S2 Lungs: Normal Breath Sounds Neuro: Alert and responsive Abdomen: Soft Skin: No rashes noted on visualized skin Musculoskeletal: No Chest Wall Tenderness Extremities: No Edema, Normal Pulses Results 07/19/17 03:37 07/19/17 05:42 Lab Results 07/18/17 07/18/17 07/18/17 12:36 15:40 15:46 WBC Hgb Hct Plt Count INR 1.1 APTT 35.3 Sodium 117 L* 117 L* Potassium Chloride Carbon Dioxide BUN Creatinine Glucose Calcium Troponin I 0.17 H* 07/18/17 07/18/17 07/18/17 15:46 21:37 21:37 WBC Hgb Hct Plt Count INR APTT 95.4 H D Sodium Potassium Chloride Carbon Dioxide BUN Creatinine Glucose Calcium Troponin I 0.16 H* 0.11 H* 07/19/17 07/19/17 07/19/17 00:17 03:37 03:37 WBC 12.9 H Hgb 12.3 D Hct 33.2 L Plt Count 235 INR APTT Sodium 118 L* 117 L* Potassium 3.7 Chloride 84 L Carbon Dioxide 26 BUN 18 Creatinine 1.41 H Glucose 139 H Calcium 8.5 L Troponin I 07/19/17 07/19/17 07/19/17 03:37 05:42 05:42 WBC Hgb Hct Plt Count INR APTT 56.9 H Sodium 119 L* Potassium Chloride Carbon Dioxide BUN Creatinine Glucose Calcium Troponin I 0.08 H* 07/19/17 12:43 WBC Hgb Hct Plt Count INR APTT 49.7 H Sodium Potassium Chloride Carbon Dioxide BUN Creatinine Glucose Calcium Troponin I Active Medications Acetaminophen (Tylenol) 650 mg PO Q6HR PRN PRN Reason: Mild Pain/Fever Stop: 01/17/18 03:38 Last Admin: 07/18/17 21:30 Dose: 650 mg Aspirin (Aspirin Ec) 81 mg PO DAILY [facility] Stop: 01/17/18 09:01 Last Admin: 07/19/17 09:19 Dose: 81 mg Benztropine Mesylate (Cogentin) 1 mg PO HS [facility] Stop: 01/18/18 21:01 Clopidogrel Bisulfate (Plavix) 75 mg PO DAILY [facility] Stop: 01/17/18 09:01 Last Admin: 07/19/17 09:19 Dose: 75 mg Dextrose/Water (Dextrose 50% (Syg)) 25 ml IVP AD PRN PRN Reason: Hypoglycemia Stop: 01/17/18 01:18 Glucagon (Glucagen) 1 mg IM ONCE PRN PRN Reason: Hypoglycemia Stop: 01/17/18 01:18 Glucose (Gluctose) 15 gm PO ONCE PRN PRN Reason: Hypoglycemia Stop: 01/17/18 01:18 Glucose (Gluctose) 30 gm PO ONCE PRN PRN Reason: Hypoglycemia Stop: 01/17/18 01:18 Heparin Sodium (Porcine) (Heparin Lock) 500 unit IV ONCE PRN PRN Reason: Port Flush while in RADIOLOGY Stop: 07/20/17 13:04 Heparin Sodium (Porcine) (Heparin) 4,000 unit IVP Q6HR PRN PRN Reason: SEE COMMENTS Stop: 01/17/18 15:41 Heparin Sodium (Porcine) (Heparin) 2,000 unit 30 unit/kg (2000 unit) IVP Q6H PRN PRN Reason: SEE COMMENTS Stop: 01/17/18 15:41 Last Admin: 07/19/17 06:34 Dose: 2,000 unit Piperacillin Sod/Tazobactam (Sod 3.375 gm/ Sodium Chloride) 100 mls @ 25 mls/ hr IVPB Q8H [facility] Stop: 01/17/18 10:01 Last Admin: 07/19/17 12:35 Dose: 25 mls/hr Heparin Sodium/Dextrose (Heparin 25,000 Unit/500 Ml D5w) 25,000 unit in 500 mls @ 16.329 mls/hr IVC .Q24H [facility]; 12 UNIT/KG/HR PRN Reason: Protocol Stop: 01/17/18 15:46 Last Titration: 07/19/17 06:31 Dose: 12 unit/kg/hr, 16.329 mls/hr Sodium Chloride (0.9 % Sodium Chloride) 1,000 mls @ 100 mls/hr IVC .Q10H [facility] Stop: 01/18/18 08:46 Last Admin: 07/19/17 09:20 Dose: 100 mls/hr Insulin Detemir (Levemir) 25 unit SQ HS [facility] Stop: 01/17/18 02:20 Last Admin: 07/18/17 23:09 Dose: Not Given Insulin Human Lispro (Humalog) 0 units SQ Q4H [facility] PRN Reason: Protocol Stop: 01/17/18 02:46 Last Admin: 07/19/17 12:34 Dose: 6 units Isosorbide Mononitrate (Imdur) 60 mg PO DAILY [facility] Stop: 01/17/18 09:01 Last Admin: 07/19/17 12:22 Dose: Not Given Lorazepam (Ativan) 0.5 mg IVP Q6HR PRN PRN Reason: Anxiety Stop: 07/21/17 14:56 Last Admin: 07/18/17 21:31 Dose: 0.5 mg Lorazepam (Ativan) 1 mg PO Q4HR PRN PRN Reason: Anxiety Stop: 01/17/18 20:08 Metoprolol Tartrate (Lopressor) 5 mg IVP Q6HR PRN PRN Reason: Tachyarrhythmias Stop: 01/17/18 13:06 Last Admin: 07/18/17 13:44 Dose: 5 mg Metoprolol Tartrate (Lopressor) 50 mg PO DAILY [facility] Stop: 01/18/18 09:01 Last Admin: 07/19/17 12:22 Dose: Not Given Naloxone HCl (Narcan) 0.4 mg IVP Q2MIN PRN PRN Reason: SEE COMMENTS Stop: 01/17/18 03:38 Olanzapine (Zyprexa) 5 mg IM ONCE PRN PRN Reason: Psychosis Stop: 01/17/18 02:01 Risperidone (Risperdal) 2 mg PO BID [facility] Stop: 01/18/18 21:01 Simvastatin (Zocor) 40 mg PO DAILY [facility] PRN Reason: Protocol Stop: 01/17/18 09:01 Last Admin: 07/19/17 09:20 Dose: 40 mg - Imaging and Cardiology Echo: report reviewed Other Results: 12 hour tele: avg HR=79. No significant event noted. - EKG Interpretation EKG results cardiology: personally reviewed Consult Discharge Plan - Plan Referrals: NONE,PCP [Primary Care Provider] -
--- NOTE | 2017-07-19 15:49 | Electrocardiograph Report ---
[address] [address] Test Date: 2017-07-18 Pat Name: Lillian Wilcox Department: 102 Room: 2NE18 Gender: F X Ray Equipment Tester: DIONY : 1965 Requested By: Deniz Boland Order Number: [id number] Reading MD: Rodolfo Caballero Measurements Intervals [place] Rate: 126 P: 64 WV: 124 QRS: 19 QRSD: 84 T: 51 QT: 334 QTc: 409 Interpretive Statements SINUS TACHYCARDIA ABNORMAL RHYTHM ECG Electronically Signed On 07-19-2017 15:47:36 EDT by Rodolfo Caballero
[2017-07-19] MEDS: *HR* Heparin 5,000 UNIT/ML VIAL SQ SCH (17:45)
[2017-07-19] MEDS ORDERED: *HR* Dextrose 50 % in Water (Syg) 50 ML SYRINGE IVP PRN ×3 (17:55→19:55)
[2017-07-19] MEDS ORDERED: Dextrose Gel 15 GM/37.5 ML TUBE PO PRN ×6 (17:55→19:55)
[2017-07-19] MEDS ORDERED: D5% in Water 1,000 ML IVC PRN ×4 (17:55→19:55)
[2017-07-19] MEDS: Insulin DETEMIR 100 UNIT/ML X5UNITS SQ SCH (22:06)
[2017-07-20] MEDS: Piperacillin/Tazobactam 3.375 GM in 0.9 % Sodium Chloride Mini Bag 100 ML IVPB SCH ×2 (01:34→19:29)
[2017-07-20 03:34] LABS: Basophils # 0.1 K/mcL (0.0-0.2); Basophils % 0.7 %; Eosinophils # 0.3 K/mcL (0.0-0.6); Eosinophils % 2.4 %; Hematocrit 31.3 % (35.3-44.9); Hemoglobin 11.5 g/dL (11.5-15.4); Immature Granulocytes % 0.3 % (0-4); Lymphocytes # 2.6 K/mcL (0.6-4.6); Lymphocytes % 25.4 %; Mean Corpuscular HGB Conc 36.7 g/dL (31.6-35.5); Mean Corpuscular Hemoglobin 29.2 pg (28.0-33.3); Mean Corpuscular Volume 79.4 fL (83.0-100.0); Mean Platelet Volume 10.4 fL (9.4-12.4); Monocytes # 1.1 K/mcL (0.0-1.3); Monocytes % 10.5 %; Neutrophils # 6.3 K/mcL (1.6-8.9); Platelet Count 238 K/mcL (140-400); Red Blood Count 3.94 M/mcL (3.82-4.97); Red Cell Distribution Width 12.5 % (11.5-14.5); Segmented Neutrophils % 60.7 %
[2017-07-20 03:58] LABS: Calcium 8.8 mg/dL (8.6-10.3); Potassium 3.6 mEq/L (3.5-5.1)
[2017-07-20] MEDS: *HR* Heparin 5,000 UNIT/ML VIAL SQ SCH ×2 (05:20→19:55)
[2017-07-20] MEDS: 0.9 % Sodium Chloride 1,000 ML IVC SCH ×2 (05:20→19:27)
[2017-07-20] MEDS: Isosorbide MONOnitrate (24 HR) 60 MG TAB.ER.24H PO SCH (08:33)
[2017-07-20] MEDS: Aspirin Enteric Coated 81 MG Tablet PO SCH (08:33)
[2017-07-20] MEDS: Insulin LISPRO 300 UNITS/3 ML VIAL SQ SCH ×4 (08:34→20:17)
[2017-07-20] MEDS: risperiDONE 1 MG TABLET PO SCH ×2 (08:34→19:56)
--- NOTE | 2017-07-20 09:09 | Internal Med Progress Note ---
<Andrew Foote - Last Filed: 07/20/17 09:09> Date of Encounter: 07/20/17 - Assessment and plan (1) Hyponatremia Current Visit: Yes Status: Acute (2) Hyperglycemia Current Visit: Yes Status: Acute (3) Acute encephalopathy Current Visit: Yes Status: Acute (4) Diabetes mellitus Current Visit: Yes Status: Chronic Qualifiers: Diabetes mellitus type: type 2 Diabetes mellitus intermediate frame tender insulin use: without retirement use Diabetes mellitus complication status: with unspecified complications Qualified Code(s): E11.8 - Type 2 diabetes mellitus with unspecified complications (5) Bipolar disease, chronic Current Visit: Yes Status: Chronic (6) DVT prophylaxis Current Visit: Yes Status: Acute (7) Hypomagnesemia Current Visit: Yes Status: Acute (8) CKD (chronic kidney disease) stage 3, GFR 30-59 ml/min Current Visit: Yes Status: Chronic (9) Suicidal behavior Current Visit: Yes Status: Acute Qualifiers: Attempted self-injury: without attempted self-injury Qualified Code(s): R46.89 - Other symptoms and signs involving appearance and behavior (10) NSTEMI (non-ST elevated myocardial infarction) Current Visit: Yes Status: Acute (11) Leukocytosis Current Visit: Yes Status: Acute Qualifiers: Qualified Code(s): D72.829 - Elevated white blood cell count, unspecified - Time Spent With Patient Total time spent is greater than 50% in coordination of care (as documented) at patient's floor/unit and/or counseling patient: - Constitutional Vitals: Temp Pulse Resp BP Pulse Ox 98.3 F 87 14 146/73 98 07/20/17 07:30 07/20/17 07:13 07/20/17 07:13 07/20/17 07:13 07/20/17 07:13 General appearance: Present: cooperative, A&O X 3, pleasant, no acute distress, answers questions appropriately Internal Medicine: Result - Labs CBC & Chem 7: 07/20/17 03:10 07/20/17 03:10 Labs: Short CBC 07/20/17 Range/Units 03:10 WBC 10.4 (4.3-11.1) K/mcL Hgb 11.5 (11.5-15.4) g/dL Hct 31.3 L (35.3-44.9) % Plt Count 238 (140-400) K/mcL Neutrophils # 6.3 (1.6-8.9) K/mcL BMP 07/20/17 03:10 Sodium 131 L D Potassium 3.6 Chloride 96 L Carbon Dioxide 26 BUN 18 Creatinine 1.25 H Glucose 167 H Calcium 8.8 - ABG Interpretation ABG results: PT/INR, D-dimer PT 12.2 Seconds (9.4-12.1) H 07/18/17 15:40 - Impressions Impressions Echocardiogram 07/18/17 13:44 Impressions: LVEF 70%. Normal LV chamber size and function. Mild concentric left ventricular hypertrophy. Mild left ventricular diastolic dysfunction. Atypical septal motion consistent with post-operative status. Normal right ventricular structure and function. Mild pulmonary hypertension. Estimated RVSP is 37 mmHg. No significant valvular dysfunction. Left Ventricular Wall Motion: Rest Echo Findings All wall segments showed normal motion. Findings: Study Quality * Technically adequate exam. ECG Findings * Sinus tachycardia. Left Ventricle * LVEF 70%. * Normal LV chamber size and function. * Mild concentric left ventricular hypertrophy. * Mild left ventricular diastolic dysfunction. * Atypical septal motion consistent with post-operative status. Right Ventricle * Normal right ventricular structure and function. Left Atrium * Normal left atrial size. Right Atrium * Normal right atrial size. Aortic Valve * Trileaflet aortic valve with normal function. * No aortic regurgitation. * No aortic stenosis. Mitral Valve * Normal mitral valve structure and function. * No mitral regurgitation. * No mitral stenosis. Tricuspid Valve * Normal tricuspid valve structure and function. * Trace tricuspid regurgitation. * Mild pulmonary hypertension. * Estimated RVSP is 37 mmHg. * Estimated RA pressure is 5 mmHg. Pulmonic Valve * Normal pulmonic valve structure and function. * Trace pulmonic regurgitation. Aorta * Normally sized aortic root. Pericardium * The pericardium appears normal. IVC * Normal IVC dimensions and inspiratory collapse. Pulmonary Artery * Normal visualized portions of the main pulmonary artery. Consult Discharge Plan - Plan Referrals: NONE,PCP [Primary Care Provider] - <Renny Banks - Last Filed: 07/20/17 15:43> Date of Encounter: 07/20/17 Time of Encounter: 15:43 - Assessment and plan (1) Acute encephalopathy Current Visit: Yes Status: Resolved Assessment and plan: Secondary to hyponatremia. Resolved. (2) Hyponatremia Current Visit: Yes Status: Acute Assessment and plan: Improving. Today sodium is 131. Continue free water restriction. (3) Diabetes mellitus Current Visit: Yes Status: Chronic Assessment and plan: Controlled. Continue Levemir and sliding scale insulin. Continue diabetic diet. Qualifiers: Diabetes mellitus type: type 2 Diabetes mellitus retirement insulin use: without intermediate frame tender use Diabetes mellitus complication status: with unspecified complications Qualified Code(s): E11.8 - Type 2 diabetes mellitus with unspecified complications (4) Bipolar disease, chronic Current Visit: Yes Status: Chronic Assessment and plan: controlled. continue resperidone and cogentin (5) DVT prophylaxis Current Visit: Yes Status: Acute Assessment and plan: heparin SQ (6) Hypomagnesemia Current Visit: Yes Status: Resolved Assessment and plan: resolved. (7) CKD (chronic kidney disease) stage 3, GFR 30-59 ml/min Current Visit: Yes Status: Chronic Assessment and plan: shivani improving. was on IVF all day will d/c BMP in am (8) Suicidal behavior Current Visit: Yes Status: Acute Assessment and plan: patient will be transferred to after medically stable. Qualifiers: Attempted self-injury: without attempted self-injury Qualified Code(s): R46.89 - Other symptoms and signs involving appearance and behavior (9) NSTEMI (non-ST elevated myocardial infarction) Current Visit: Yes Status: Ruled-out Assessment and plan: ruled out adynamic troponin. Echocardiogram demonstrates preserved LV EF with normal wall motion. Cardiology signed off. (10) Leukocytosis Current Visit: Yes Status: Resolved Assessment and plan: Resolved. Likely secondary to stress from hypernatremia. Zosyn discontinued. Qualifiers: Leukocytosis type: unspecified Qualified Code(s): D72.829 - Elevated white blood cell count, unspecified - Time Spent With Patient Total time spent is greater than 50% in coordination of care (as documented) at patient's floor/unit and/or counseling patient: - Subjective Interval history: NO acute events overnight. Patient denies chest pain, abdominal pain, sob, N/V. SHe is alert and oriented 3. - Constitutional Vitals: Temp Pulse Resp BP Pulse Ox 98.2 F 81 16 162/87 99 07/20/17 12:00 07/20/17 12:00 07/20/17 12:00 07/20/17 12:00 07/20/17 12:00 - Other Additional findings: General: without distress Heart: Regular rate and rhythm with no murmur Lungs: Clear to auscultation bilaterally Abdomen: Soft nontender, nondistended positive bowel sounds Skin: warm and dry, absent rash Extremities: Absent pedal edema, Neuro: Alert oriented 3 Vascular: Pedal and radial pulses 2 out of 4 Internal Medicine: Result - Labs CBC & Chem 7: 07/20/17 03:10 07/20/17 03:10 Labs: Short CBC 07/20/17 Range/Units 03:10 WBC 10.4 (4.3-11.1) K/mcL Hgb 11.5 (11.5-15.4) g/dL Hct 31.3 L (35.3-44.9) % Plt Count 238 (140-400) K/mcL Neutrophils # 6.3 (1.6-8.9) K/mcL BMP 07/20/17 03:10 Sodium 131 L D Potassium 3.6 Chloride 96 L Carbon Dioxide 26 BUN 18 Creatinine 1.25 H Glucose 167 H Calcium 8.8 - ABG Interpretation ABG results: PT/INR, D-dimer PT 12.2 Seconds (9.4-12.1) H 07/18/17 15:40 <Jerrod Rawls - Last Filed: 07/20/17 17:51> Date of Encounter: 07/20/17 - Assessment and plan (1) Hyponatremia Current Visit: Yes Status: Acute (2) Acute encephalopathy Current Visit: Yes Status: Resolved (3) Diabetes mellitus Current Visit: Yes Status: Chronic Qualifiers: Diabetes mellitus type: type 2 Diabetes mellitus intermediate frame tender insulin use: without intermediate frame tender use Diabetes mellitus complication status: with unspecified complications Qualified Code(s): E11.8 - Type 2 diabetes mellitus with unspecified complications (4) Bipolar disease, chronic Current Visit: Yes Status: Chronic (5) DVT prophylaxis Current Visit: Yes Status: Acute (6) Hypomagnesemia Current Visit: Yes Status: Resolved (7) CKD (chronic kidney disease) stage 3, GFR 30-59 ml/min Current Visit: Yes Status: Chronic (8) Suicidal behavior Current Visit: Yes Status: Acute Qualifiers: Attempted self-injury: without attempted self-injury Qualified Code(s): R46.89 - Other symptoms and signs involving appearance and behavior (9) NSTEMI (non-ST elevated myocardial infarction) Current Visit: Yes Status: Ruled-out (10) Leukocytosis Current Visit: Yes Status: Resolved Qualifiers: Leukocytosis type: unspecified Qualified Code(s): D72.829 - Elevated white blood cell count, unspecified (11) CAD (coronary artery disease) Current Visit: Yes Status: Chronic Qualifiers: Coronary Disease-Associated Artery/Lesion type: [place] artery [place] vs. transplanted heart: [place] heart Associated angina: without angina Qualified Code(s): I25.10 - Atherosclerotic heart disease of [place] coronary artery without angina pectoris (12) Tobacco abuse Current Visit: Yes Status: Chronic - Time Spent With Patient Total time spent is greater than 50% in coordination of care (as documented) at patient's floor/unit and/or counseling patient: - Constitutional Vitals: Temp Pulse Resp BP Pulse Ox 98.5 F 86 15 167/86 100 07/20/17 16:00 07/20/17 16:00 07/20/17 16:00 07/20/17 16:00 07/20/17 16:00 Internal Medicine: Result - Labs CBC & Chem 7: 07/20/17 03:10 07/20/17 03:10 Labs: Short CBC 07/20/17 Range/Units 03:10 WBC 10.4 (4.3-11.1) K/mcL Hgb 11.5 (11.5-15.4) g/dL Hct 31.3 L (35.3-44.9) % Plt Count 238 (140-400) K/mcL Neutrophils # 6.3 (1.6-8.9) K/mcL BMP 07/20/17 03:10 Sodium 131 L D Potassium 3.6 Chloride 96 L Carbon Dioxide 26 BUN 18 Creatinine 1.25 H Glucose 167 H Calcium 8.8 - ABG Interpretation ABG results: PT/INR, D-dimer PT 12.2 Seconds (9.4-12.1) H 07/18/17 15:40 - Attending Attestation I examined this patient and my medical decision-making was reviewed with the Resident Physician on 07/20/17. I agree with the documented findings, disposition and treatment plan as described except to the extent set forth below. Ms Wilcox is currently admitted for hyponatremia and confusion. She remains moderate to high risk due to potential for worsening clinical status. Ms Wilcox is confused but is most likely baseline. No fever or chills. Sodium improving. Renal function still abnormal. Exam alert Comfortable Mucus membranes dry Heart reg No wheeze abd soft I/P 1. Hyponatremia 2. Encephalopathy Further diagnoses and plan as above.
--- NOTE | 2017-07-20 10:49 | Nephrology Progress Note ---
Date of Encounter: 07/20/17 Time of Encounter: 10:35 - Assessment and Plan (1) Hyponatremia Current Visit: Yes Status: Acute A/P-chronic hyponatremia in setting psyche illness, component of polydipsia. Urine inapproriately concentrated TSH in range, awaiting adrenal studies. Continue fluid restriction. Renal fct improving, creat 1.25. BP improved. Will increase Metoprolol 50 mg BID. Subjective Principal diagnosis: Elevated troponin Interval history: Sitting up in chair. Thinks is going home today. SBP 140's AR 87-94. Objective - Vital Signs Vital signs: Vital Signs Temp Pulse Resp BP Pulse Ox 07/20/17 07:30 98.3 F 07/20/17 07:13 87 14 146/73 98 07/20/17 03:18 98.1 F 94 16 140/67 100 07/19/17 22:22 98.1 F 94 16 138/65 94 07/19/17 19:22 98.3 F 86 16 136/58 95 07/19/17 16:34 98.2 F 111 19 117/59 94 07/19/17 10:58 98.1 F 92 20 117/59 Intake and Output 07/19/17 07/20/17 07/20/17 23:59 07:59 15:59 Intake Total 1560 / 1560 1000 / 1000 150 / 150 Output Total 500 / 500 1000 / 1000 350 / 350 Balance 1060 / 1060 0 / 0 -200 / -200 Intake: IV Fluids 1200 / 1200 1000 / 1000 0.9 % Sodium Chloride 1,000 ML 1000 / 1000 1000 / 1000 @ 100 mls/hr IVC .Q10H LAWANDA Rx#: [id number] Zosyn 3.375 GM In 0.9 % Sodium 200 / 200 Chloride (Mini-Bag +) 100 ML @ 25 mls/hr IVPB Q8H LAWANDA Rx#: [id number] Oral 360 / 360 150 / 150 Output: Urine 500 / 500 1000 / 1000 350 / 350 Other: Meal Dinner Percent of Meal Consumed 65% # Voids 1 Weight 63.7 kg Blood Glucose* 278 132 Patient Weight 07/20/17 23:59 Weight 63.7 kg - Lab 07/20/17 03:10 07/20/17 03:10 Most recent lab results Calcium 8.8 mg/dL (8.6-10.3) 07/20/17 03:10 Magnesium 2.2 mg/dL (1.6-2.6) 07/18/17 06:16 Consult Discharge Plan - Plan Referrals: NONE,PCP [Primary Care Provider] -
[2017-07-20] MEDS: Aspirin 81 MG TAB.CHEW PO SCH (19:28)
[2017-07-20] MEDS: Insulin DETEMIR 100 UNIT/ML X5UNITS SQ SCH (20:20)
[2017-07-21 09:10] LABS: BUN/Creatinine Ratio 18 (6-26); Blood Urea Nitrogen 20 mg/dL (6-20); Calcium 9.2 mg/dL (8.6-10.3); Carbon Dioxide 27 mEq/L (23-29); Chloride 93 mEq/L (98-107); Glucose 90 mg/dL (70-105); Osmolality,Calculated 268 (280-300); Potassium 3.6 mEq/L (3.5-5.1); Sodium 128 mEq/L (136-145); eGFR For African Americans > 60 (> 60); eGFR For Non-African Americans 52 (> 60)
[2017-07-21 09:28] LABS: Basophils # 0.1 K/mcL (0.0-0.2); Basophils % 0.7 %; Eosinophils # 0.5 K/mcL (0.0-0.6); Eosinophils % 5.1 %; Hematocrit 32.9 % (35.3-44.9); Hemoglobin 11.8 g/dL (11.5-15.4); Immature Granulocytes % 0.3 % (0-4); Lymphocytes # 2.6 K/mcL (0.6-4.6); Lymphocytes % 27.2 %; Mean Corpuscular HGB Conc 35.9 g/dL (31.6-35.5); Mean Corpuscular Volume 80.8 fL (83.0-100.0); Monocytes # 0.8 K/mcL (0.0-1.3); Monocytes % 8.4 %; Neutrophils # 5.7 K/mcL (1.6-8.9); Platelet Count 243 K/mcL (140-400); Red Blood Count 4.07 M/mcL (3.82-4.97); Red Cell Distribution Width 12.5 % (11.5-14.5); Segmented Neutrophils % 58.3 %
--- NOTE | 2017-07-21 09:57 | Nephrology Progress Note ---
Date of Encounter: 07/21/17 Time of Encounter: 08:25 - Assessment and Plan (1) Hyponatremia Current Visit: Yes Status: Acute A/P-chronic hyponatremia in setting psyche illness, component of polydipsia. Urine inapproriately concentrated TSH in range, awaiting adrenal studies. Continue fluid restriction. Renal fct at baseline creat 1.10, gfr>60. Sodium 128. Patient runs high 120's to low 130's. Subjective Principal diagnosis: Elevated troponin Interval history: Sleeping, arouses easily. Sitter at bedside. No new complaints. Objective - Vital Signs Vital signs: Vital Signs Temp Pulse Resp BP Pulse Ox 07/21/17 08:58 98.5 F 104 18 111/72 94 07/20/17 23:55 98.0 F 86 16 163/86 98 07/20/17 19:03 92 15 144/85 97 07/20/17 16:00 98.5 F 86 15 167/86 100 07/20/17 12:00 98.2 F 81 16 162/87 99 Intake and Output 07/20/17 07/21/17 07/21/17 23:59 07:59 15:59 Intake Total 520 / 520 260 / 260 Output Total 1800 / 1800 500 / 500 Balance -1280 / -1280 -500 / -500 260 / 260 Intake: Oral 520 / 520 260 / 260 Output: Urine 1800 / 1800 500 / 500 Other: Meal Dinner Breakfast Percent of Meal Consumed 50% 0% # Bowel Movements 0 Blood Glucose* 187 92 - General Appearance General appearance: Present: well-developed, well-nourished, appears started age EENT: Present: mucous membranes moist Neck: Present: no JVD Respiratory: Present: wheezing Cardiology: Present: no edema, regular rate, regular rhythm Gastrointestinal: Present: normoactive bowel sounds, no tenderness Integumentary: Present: warm and dry Psychiatric: Present: mood/affect appropriate, cooperative - Lab 07/21/17 08:23 07/21/17 08:23 Most recent lab results Calcium 9.2 mg/dL (8.6-10.3) 07/21/17 08:23 Magnesium 2.2 mg/dL (1.6-2.6) 07/18/17 06:16 Consult Discharge Plan - Plan Referrals: NONE,PCP [Primary Care Provider] -
[2017-07-21] MEDS: risperiDONE 1 MG TABLET PO SCH (10:18)
[2017-07-21] MEDS: Aspirin Enteric Coated 81 MG Tablet PO SCH (10:19)
[2017-07-21] MEDS: Isosorbide MONOnitrate (24 HR) 60 MG TAB.ER.24H PO SCH (10:19)
[2017-07-21] MEDS: *HR* Heparin 5,000 UNIT/ML VIAL SQ SCH (10:19)
--- NOTE | 2017-07-21 10:36 | Discharge Summary ---
<Renny Banks - Last Filed: 07/21/17 10:29> - NOTES TO OUTPATIENT PROVIDER Notes to Outpatient Provider: Patient presented with altered mental status and was found to be hyponatremic and hyperglycemic. It was determined this is secondary to polydipsia and SIADH. Patient was put on fluid restriction to 1.5 L which she should continue outpatient as well as salt tablets. patient was started on risperidone 2 mg by mouth daily at bedtime for mood and Cogentin. continue on discharge. Patient's also seen by psychiatry as she had suicidal ideations and a history of schizophrenia. Cardiology was consulted for elevated troponin but reported this was due to demand ischemia. Patient was continued on her home CAD medications. Patient was transferred to . 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 transplanted heart: [place] heart Associated angina: without angina Qualified Code(s): I25.10 - Atherosclerotic heart disease of [place] coronary artery without angina pectoris (6) Bipolar disease, chronic Priority: Secondary Status: Chronic (7) DVT prophylaxis Priority: Secondary Status: Acute (8) Hypomagnesemia Priority: Secondary Status: Resolved (9) CKD (chronic kidney disease) stage 3, GFR 30-59 ml/min Priority: Secondary Status: Chronic (10) Suicidal behavior Priority: Secondary Status: Acute Qualifiers: Attempted self-injury: without attempted self-injury Qualified Code(s): R46.89 - Other symptoms and signs involving appearance and behavior (11) NSTEMI (non-ST elevated myocardial infarction) Priority: Secondary Status: Ruled-out (12) Leukocytosis Priority: Secondary Status: Resolved Qualifiers: Leukocytosis type: unspecified Qualified Code(s): D72.829 - Elevated white blood cell count, unspecified (13) Tobacco abuse Priority: Secondary Status: Chronic (14) SIADH (syndrome of inappropriate ADH production) Priority: Secondary Status: Chronic Hospital course: Patient presented with altered mental status and was found to be hyponatremic and hyperglycemic. Head CT was negative. It was determined this is secondary to polydipsia and SIADH. Patient was put on fluid restriction to 1.5 L which she should continue outpatient as well as salt tablets. patient was started on risperidone 2 mg by mouth daily at bedtime for mood and Cogentin by pshcyiatry.and she had suicidal ideations and a history of schizophrenia. Cardiology was consulted for elevated troponin but reported this was due to demand ischemia. CTA was negative. Chest x-ray was negative. Echocardiogram showed LVEF of 70% with mild left ventricular diastolic dysfunction, mild concentric left ventricular hypertrophy, with normal wall motion. Patient was continued on her home CAD medications. Patient was transferred to . Discharge discussed with: patient - Time Spent with Patient Total time spent providing and/or coordinating discharge services: Greater than 30 minutes - Discharge Medications Prescriptions: Benztropine [Cogentin] 1 mg PO HS #30 tablet risperiDONE [Risperdal] 2 mg PO BID #60 tablet Sodium Chloride 1,000 mg MC TID #90 tablet.james Home Medications: Aspirin Enteric Coated [Aspirin EC] 81 mg PO DAILY 09/03/16 [History] Clopidogrel [Plavix] 75 mg PO DAILY 09/03/16 [History] Insulin Glargine,Hum.rec.anlog [Lantus Solostar] 25 unit SQ DAILY 09/03/16 [ History] Isosorbide MONOnitrate (24 HR) [Imdur] 60 mg PO DAILY 09/03/16 [History] Lisinopril [Zestril] 10 mg PO DAILY 09/03/16 [History] Simvastatin [Zocor] 40 mg PO DAILY 09/03/16 [History] Benztropine [Cogentin] 1 mg PO HS #30 tablet 07/21/17 [Rx] Sodium Chloride 1,000 mg MC TID #90 tablet.james 07/21/17 [Rx] risperiDONE [Risperdal] 2 mg PO BID #60 tablet 07/21/17 [Rx] Allergies/Adverse Reactions: 3 Allergy/AdvReac Type Severity Reaction Status Date / Time duloxetine [From Cymbalta] AdvReac Vomiting Verified 09/03/16 10:00 Date of admission: 07/18/17 04:05 Primary care physician: PCP NONE Consults: 07/18/17 13:46 Consult to Cardiology [CONS] Routine Comment: Consulting Provider: Cardiology Aline Reason for Consult: sustained tachycardia Call Completed: Yes Discharging clinician: Renny Banks Anticipated date of discharge: 07/21/17 - Constitutional Vitals: Temp Pulse Resp BP Pulse Ox 98.5 F 104 18 111/72 94 07/21/17 08:58 07/21/17 08:58 07/21/17 08:58 07/21/17 08:58 07/21/17 08:58 General appearance: Present: cooperative, A&O X 3, pleasant, no acute distress, answers questions appropriately - Other Additional findings: General: without distress Heart: Regular rate and rhythm with no murmur Lungs: Clear to auscultation bilaterally Abdomen: Soft nontender, nondistended positive bowel sounds Skin: warm and dry, absent rash Extremities: Absent pedal edema, Neuro: Alert oriented 3 Vascular: Pedal and radial pulses 2 out of 4 - Patient Status Disposition: Home, Self-Care Condition: Good Functional capacity at discharge: independent ambulation Overall status at discharge: patient is progressing back to baseline - Discharge Instructions Instructions: Risperidone (By mouth), Sodium Chloride (By mouth), Hyponatremia (DC), Altered Mental Status (GEN) Follow Up With: NONE,PCP [Primary Care Provider] - - Diet and Activity Activity: increase activity as tolerated Diet: diabetic diet, low fat, low cholesterol, other (fluid restriction of 1.5L) <Jerrod Rawls - Last Filed: 07/21/17 16:20> - NOTES TO OUTPATIENT PROVIDER Notes to Outpatient Provider: Pt was cleared for discharge by psych and went home. Orders not resulted at time of discharge: Pending orders 07/18/17 09:13 Culture,Blood [BC] Routine Date of Encounter: 07/21/17 - Discharge Diagnosis (1) Hyponatremia Status: Chronic (2) Acute encephalopathy Status: Resolved (3) Diabetes mellitus Status: Chronic Qualifiers: Diabetes mellitus type: type 2 Diabetes mellitus terminal system operator insulin use: without snf use Diabetes mellitus complication status: with unspecified complications Qualified Code(s): E11.8 - Type 2 diabetes mellitus with unspecified complications (4) CAD (coronary artery disease) Status: Chronic Qualifiers: Coronary Disease-Associated Artery/Lesion type: [place] artery [place] vs. transplanted heart: [place] heart Associated angina: without angina Qualified Code(s): I25.10 - Atherosclerotic heart disease of [place] coronary artery without angina pectoris (5) Bipolar disease, chronic Status: Chronic (6) Hypomagnesemia Status: Resolved (7) CKD (chronic kidney disease) stage 3, GFR 30-59 ml/min Status: Chronic (8) Suicidal behavior Status: Resolved Qualifiers: Attempted self-injury: without attempted self-injury Qualified Code(s): R46.89 - Other symptoms and signs involving appearance and behavior (9) Leukocytosis Status: Resolved Qualifiers: Leukocytosis type: unspecified Qualified Code(s): D72.829 - Elevated white blood cell count, unspecified (10) Tobacco abuse Status: Chronic (11) Psychogenic polydipsia Status: Chronic (12) SIADH (syndrome of inappropriate ADH production) Status: Chronic Hospital course: Ms. Wilcox is a 51 year old female - Time Spent with Patient Total time spent providing and/or coordinating discharge services: 39min Date of admission: 07/18/17 04:05 Primary care physician: PCP NONE Consults: 07/18/17 13:46 Consult to Cardiology [CONS] Routine Comment: Consulting Provider: Cardiology Aline Reason for Consult: sustained tachycardia Call Completed: Yes - Constitutional Vitals: Temp Pulse Resp BP Pulse Ox 98.5 F 111 20 126/64 97 07/21/17 08:58 07/21/17 11:18 07/21/17 11:18 07/21/17 11:18 07/21/17 11:18 - Attending Attestation I examined this patient and my medical decision-making was reviewed with the Resident Physician on 07/21/17. I agree with the documented findings, disposition and treatment plan as described except to the extent set forth below. Ms Wilcox has been admitted for encephalopathy and suicidal ideation. She was hyponatremic and appears to have combination of polydipsia and SIADH. She was water restricted and given NS. Her electrolytes improved. She has been reevaluated by psychiatry and deemed no need for inpatient psych. Today her renal function has normalized and her Na is in baseline range. She is currently afebrile and ready for discharge. Exam alert Comfortable Mucus membranes dry Heart not tachy No wheeze Plan D/C today Fluid restriction Salt tablets. Addendum entered and electronically signed by Renny Banks DO 13:37: Psychiatry cleared patient for discharged from their perspective. State she does not need to be transferred to . Patient will be discharged. home.
[2017-07-21] MEDS: Insulin LISPRO 300 UNITS/3 ML VIAL SQ SCH ×2 (10:44→11:41)
[2017-07-21 11:19] VITALS: BP 126/64
--- NOTE | 2017-07-21 12:48 | Consult Note ---
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 Wilcox is a 51 year old female female,lives with boyfriend witha long h/o schizophrenia, one inpatient hospitalization, denied h/o illict drug use, admitted to medicine on account AMS in the setting of hyponatremia and Hyperglycemia. Psychiatry consulted for depression and SI and patient was started on Risperdal 2mg bid. She was seen this afternoon in her room and reported she came to the hospital to have her foot checked. She also reported a h/o of Depression and is on Risperdal Consta (unable to recall exact dose and was due for her shot a couple of days back. Not sure if she got her last shot. She reported doing ok and endorsed feeling some how depressed which she rated 2/ 10. She denied any suicidal ideations and also denied prior h/o suicide ttempt. Patient was noted to get intermittently confused but was over all logical and goal directed. She is neither delusional nor paranoid and denied AH/VH. On review she rated her anxiety 2/10 and denied any mood symptoms. She is compliant with her medications and denied any side effects. She denied problems with her sleep or appetite> MSE: Alert and Oriented x4 Appearance: Appeared stated age with suboptimal grooming and hygiene Behavior: friendly, courteous, polite Speech: Fluent, normal tone, normal rate Mood: OK Affect: mood congruent Thought content: no HI noted, no SI noted, Perceptual disturbances: Denied AH/VH Thought Process: Linear coherent goal directed Judgment: limited Insight: Limited Labs: Na:; 128 (07/21/17) Calculated Osmolality: 267 Diagnosis: Acute Confusional state most likely medically related (hyponatremia) Schizphrenia chronic with acute exacerbation Recommendation: Continue to manage on medical floor Continue with current regimen Patient is responding to current regimen and may not qualify for inpatient hospitalization at this time:( neither suicidal nor psychotic, is logical and goal directed) We will continue to follow patient on the floor Thank you for your consult. CC: Jerrod Rawls, DO Past Med Surg Social Fam HX - Past Medical History Medical history: coronary artery disease, diabetes, hypertension, myocardial infarction, renal disease - Past Psychiatric History Psychiatric history: Reports: schizophrenia, previous psychiatric hospitalization - Past Surgical History Surgical History: coronary bypass (CABG) - Social History Smoking Status: Current every day smoker Smokeless Tobacco Status: No Alcohol use: none Drug use: none Medications & Allergies Aspirin Enteric Coated [Aspirin EC] 81 mg PO DAILY 09/03/16 [History] Clopidogrel [Plavix] 75 mg PO DAILY 09/03/16 [History] Insulin Glargine,Hum.rec.anlog [Lantus Solostar] 25 unit SQ DAILY 09/03/16 [ History] Isosorbide MONOnitrate (24 HR) [Imdur] 60 mg PO DAILY 09/03/16 [History] Lisinopril [Zestril] 10 mg PO DAILY 09/03/16 [History] Simvastatin [Zocor] 40 mg PO DAILY 09/03/16 [History] Benztropine [Cogentin] 1 mg PO HS tablet 07/21/17 [Rx] Sodium Chloride 1,000 mg MC TID #90 tablet.james 07/21/17 [Rx] risperiDONE [RisperDAL] 2 mg PO BID tablet 07/21/17 [Rx] 3 Allergy/AdvReac Type Severity Reaction Status Date / Time duloxetine [From Cymbalta] AdvReac Vomiting Verified 09/03/16 10:00 Review of Systems Constitutional: Reports: other Eyes: Denies: eye pain, vision change Ears, Nose, Throat: Denies: ear pain, throat pain, dental pain, hearing loss, congestion Cardiovascular: Denies: chest pain, palpitations, dyspnea on exertion Respiratory: Denies: cough, dyspnea, wheezes Gastrointestinal: Denies: abdominal pain, nausea, vomiting, diarrhea, constipation Genitourinary female: Denies: urgency, dysuria, frequency, abnormal menses, dyspareunia Musculoskeletal: Denies: joint swelling, joint pain Integumentary: Denies: rash, lesions, pruritus Neurological: Reports: confusion Psychiatric: Reports: depression Psychiatry Exam - Constitutional Vitals: Temp Pulse Resp BP Pulse Ox 98.5 F 111 20 126/64 97 07/21/17 08:58 07/21/17 11:18 07/21/17 11:18 07/21/17 11:18 07/21/17 11:18 General appearance: age & developmentally appropriate - Musculoskeletal Gait: normal Station: relaxed Strength & Tone: normal for patient - Psychiatric Patient Orientation: Yes Person, Yes Time, Yes Place Level of alertness: Alert, Follows commands Behavior: calm, cooperative Psychomotor activity: Normal Eye Contact: Maintains Eye Contact Mood Description: Depressed Affect description: full range Speech Volume: Normal Speech pattern: normal rate, normal rhythm, normal tone Language & Vocabulary: consistent with education Thought Process: Logical, Goal Oriented Thought Content: Yes Intact Perceptual Disturbances: Yes Reacting to internal stimuli Attention Span Ability: Capable of Focused Attention Memory Description: Recent Intact Patient Reliability: Reliable Historian Fund of knowledge: Yes average Intelligence Estimate: Average Judgment: Limited Insight: Minimal Results - Labs Labs: Laboratory Last Values WBC 9.7 K/mcL (4.3-11.1) 07/21/17 08:23 RBC 4.07 M/mcL (3.82-4.97) 07/21/17 08:23 Hgb 11.8 g/dL (11.5-15.4) 07/21/17 08:23 Hct 32.9 % (35.3-44.9) L 07/21/17 08:23 MCV 80.8 fL (83.0-100.0) L 07/21/17 08:23 MCH 29.0 pg (28.0-33.3) 07/21/17 08:23 MCHC 35.9 g/dL (31.6-35.5) H 07/21/17 08:23 RDW 12.5 % (11.5-14.5) 07/21/17 08:23 Plt Count 243 K/mcL (140-400) 07/21/17 08:23 MPV 10.0 fL (9.4-12.4) 07/21/17 08:23 Immature Gran % 0.3 % (0-4) 07/21/17 08:23 Seg Neutrophils % 58.3 % 07/21/17 08:23 Lymphocytes % 27.2 % 07/21/17 08:23 Monocytes % 8.4 % 07/21/17 08:23 Eosinophils % 5.1 % 07/21/17 08:23 Basophils % 0.7 % 07/21/17 08:23 Neutrophils # 5.7 K/mcL (1.6-8.9) 07/21/17 08:23 Lymphocytes # 2.6 K/mcL (0.6-4.6) 07/21/17 08:23 Monocytes # 0.8 K/mcL (0.0-1.3) 07/21/17 08:23 Eosinophils # 0.5 K/mcL (0.0-0.6) 07/21/17 08:23 Basophils # 0.1 K/mcL (0.0-0.2) 07/21/17 08:23 Immature Plt Fraction 8.0 % (1.1-6.1) H 07/17/17 18:11 PT 12.2 Seconds (9.4-12.1) H 07/18/17 15:40 INR 1.1 07/18/17 15:40 APTT 49.7 Seconds (26.0-36.0) H 07/19/17 12:43 VBG pH 7.43 pH Units (7.32-7.42) H 07/17/17 18:31 VBG pCO2 35 mmHg (41-51) L 07/17/17 18:31 VBG pO2 91 mmHg (25-50) H 07/17/17 18:31 VBG HCO3 23 mEq/L (21-27) 07/17/17 18:31 Sodium 128 mEq/L (136-145) L 07/21/17 08:23 Potassium 3.6 mEq/L (3.5-5.1) 07/21/17 08:23 Chloride 93 mEq/L (98-107) L 07/21/17 08:23 Carbon Dioxide 27 mEq/L (23-29) 07/21/17 08:23 BUN 20 mg/dL (6-20) 07/21/17 08:23 Creatinine 1.10 mg/dL (0.60-1.20) 07/21/17 08:23 Est GFR ( Amer) > 60 (> 60) 07/21/17 08:23 Est GFR (Non-Af Amer) 52 (> 60) L 07/21/17 08:23 BUN/Creatinine Ratio 18 (6-26) 07/21/17 08:23 Glucose 90 mg/dL (70-105) 07/21/17 08:23 POC Glucose 138 mg/dL (70-99) H 07/20/17 16:23 Est Mean Plasma Glucose 197 mg/dl 07/18/17 02:09 Hemoglobin A1c 8.5 % (-5.6) H 07/18/17 02:09 Calculated Osmolality 268 (280-300) L 07/21/17 08:23 Lactic Acid 1.8 mmol/L (0.5-2.2) 07/17/17 18:11 Calcium 9.2 mg/dL (8.6-10.3) 07/21/17 08:23 Magnesium 2.2 mg/dL (1.6-2.6) 07/18/17 06:16 Total Bilirubin 0.7 mg/dL (0.3-1.0) 07/17/17 18:11 Direct Bilirubin 0.2 mg/dL (0.0-0.2) 07/17/17 18:11 Indirect Bilirubin 0.5 mg/dL (0.0-1.2) 07/17/17 18:11 AST 25 Units/L (13-39) 07/17/17 18:11 ALT 18 Units/L (7-52) 07/17/17 18:11 Alkaline Phosphatase 97 Units/L (34-104) 07/17/17 18:11 Ammonia 25 mcmol/L (16-53) 07/17/17 18:11 Troponin I 0.08 ng/mL (< 0.04) H* 07/19/17 03:37 Serum Total Protein 6.9 g/dL (6.4-8.9) 07/17/17 18:11 Albumin 4.7 g/dL (3.5-5.7) 07/17/17 18:11 Globulin 2.2 g/dL (2.4-3.5) L 07/17/17 18:11 Albumin/Globulin Ratio 2.1 (1.1-2.2) 07/17/17 18:11 Beta-Hydroxybutyric Acd 0.61 mmol/L (0.02-0.27) H 07/18/17 02:08 TSH 1.010 mcIU/mL (0.340-5.600) 07/18/17 06:16 Cortisol Resp to ACTH 07/19/17 10:20 Urine Color Yellow (Yellow) 07/17/17 19:11 Urine Clarity Clear (Clear) 07/17/17 19:11 Urine pH 5.0 pH Units (5.0-8.0) 07/17/17 19:11 Ur Specific [place] 1.014 (1.010-1.025) 07/17/17 19:11 Urine Protein Negative mg/dL (Neg-Trace) 07/17/17 19:11 Urine Glucose (UA) >=1000 mg/dL (Normal) H 07/17/17 19:11 Urine Ketones Negative mg/dL (Negative) 07/17/17 19:11 Urine Blood Small (Negative) H 07/17/17 19:11 Urine Nitrite Negative (Negative) 07/17/17 19: Urine Bilirubin Negative (Negative) 07/17/17 19: Urine Urobilinogen Normal mg/dL (Normal) 07/17/17 19:11 Ur Leukocyte Esterase Negative (Negative) 07/17/17 19:11 Urine Microscopic RBC 0-3 per hpf (0-3) 07/17/17 19:11 Urine Microscopic WBC 0-3 per hpf (0-3) 07/17/17 19:11 Ur Squamous Epith Cells Moderate per lpf (None-Few) H 07/17/17 19:11 Urine Bacteria None Seen per hpf (None-Few) 07/17/17 19:11 Hyaline Casts None Seen per lpf (None-Few) 07/17/17 19:11 Ur Culture Indicated? NO (NO) 07/17/17 19:11 Urine Osmolality 242 mOsm/kg (300-1090) L 07/19/17 07:10 Urine Test Negative (Negative) 07/17/17 19:11 Salicylates < 2.5 mg/dL (15.0-30.0) L 07/17/17 18:11 Urine Opiates Screen Negative ng/mL (Esaaie=760) 07/17/17 19:11 Acetaminophen < 10 mcg/mL (10-20) L 07/17/17 18:11 Ur Barbiturates Screen Negative ng/mL (Hrrgnz=311) 07/17/17 19:11 Ur Phencyclidine Scrn Negative ng/mL (Cutoff=25) 07/17/17 19:11 Ur Amphetamines Screen Negative ng/mL (Qlzkez=8771) 07/17/17 19:11 U Benzodiazepines Scrn Negative ng/mL (Tixwib=704) 07/17/17 19:11 Urine Cocaine Screen Negative ng/mL (Cutoff= 300) 07/17/17 19:11 U Marijuana (THC) Screen Negative ng/mL (Cutoff = 50) 07/17/17 19:11 Ethyl Alcohol < 10 mg/dL (Less than 10) 07/17/17 18:11 Consult Discharge Plan - Plan Referrals: NONE,PCP [Primary Care Provider] - Prescriptions: Sodium Chloride 1,000 mg MC TID #90 tablet.james
--- NOTE | 2017-07-21 16:34 | Electrocardiograph Report ---
[address] [place] [address] Test Date: 2017-07-18 Pat Name: Lillian Wilcox Department: 103 Room: 2NE18 Gender: F Assistant Banquet Manager: ELIZABETH : 1965 Requested By: Deniz Boland Order Number: [id number] Reading MD: Aisha Caballero Measurements Intervals [place] Rate: 87 P: 0 DE: 128 QRS: 5 QRSD: 90 T: 60 QT: 387 QTc: 431 Interpretive Statements SINUS RHYTHM POSSIBLE LEFT ATRIAL ENLARGEMENT [-0.1mV P WAVE IN V1/V2] ANTERIOR MYOCARDIAL INFARCTION [40+ ms Q WAVE AND/OR ST/T ABNORMALITY IN V3/V4], PROBABLY RECENT POSSIBLE INFERIOR MYOCARDIAL INFARCTION ACUTE NM Electronically Signed On 07-21-2017 16:33:15 EDT by Aisha Caballero
== END 2017-07-21 15:13 | disposition home or self-care (01) | DRG 426 ==
LOC: EMEROO 17:59 → 2SOUTHHOLD 17:59 → SUATTDRO 07-18 04:05 → 2NENU 07-18 17:02
PROVIDERS: ADMIT Family Medicine; ATTEND Internal Medicine

== ENCOUNTER 2018-11-28 23:42 | Inpatient (IN) ==
[2018-11-28] MEDS ORDERED: 0.9 % Sodium Chloride 1,000 ML IVC ONE (23:51)
[2018-11-29 00:34] LABS: BUN/Creatinine Ratio 12 (6-26); Blood Urea Nitrogen 13 mg/dL (6-20); Calcium 8.9 mg/dL (8.6-10.3); Carbon Dioxide 32 mEq/L (23-29); Chloride 62 mEq/L (98-107); Glucose 391 mg/dL (70-105); Osmolality,Calculated 238 (280-300); Potassium 2.5 mEq/L (3.5-5.1); Sodium 106 mEq/L (136-145); eGFR For African Americans > 60 (> 60); eGFR For Non-African Americans 53 (> 60)
[2018-11-29 00:44] LABS: Bilirubin,Urine Negative (Negative); Blood,Urine Trace (Negative); Clarity,Urine Cloudy (Clear); Color,Urine Yellow (Yellow); Glucose,Urine (UA) >=1000 mg/dL (Normal); Ketones,Urine Negative (Negative); Leukocyte Esterase,Urine Negative (Negative); Nitrite,Urine Negative (Negative); Protein,Urine 30 mg/dL (Neg-Trace); Specific Gravity,Urine 1.022 (1.010-1.025); Urobilinogen,Urine Normal (Normal)
[2018-11-29 00:57] LABS: Hyaline Casts,Urine None Seen per lpf (None-Few); Squamous Epithelial Cell,Urine Moderate per lpf (None-Few)
[2018-11-29 00:58] LABS: Bacteria,Urine Few per hpf (None-Few); RBC,Urine 0-3 per hpf (0-3); WBC,Urine 0-3 per hpf (0-3)
[2018-11-29 01:08] LABS: Magnesium 0.7 mg/dL (1.6-2.6)
[2018-11-29] MEDS ORDERED: 0.9 % Sodium Chloride 1,000 ML ONE ×2 (01:18→18:07)
[2018-11-29] MEDS: 0.9 % Sodium Chloride 1,000 ML IVC SCH ×3 (01:27→18:17)
[2018-11-29 01:35] LABS: Basophils % 0.3 %; Eosinophils # 0.1 K/mcL (0.0-0.6); Eosinophils % 0.7 %; Hematocrit 35.8 % (35.3-44.9); Hemoglobin 13.7 g/dL (11.5-15.4); Immature Granulocytes % 0.4 % (0-4); Immature Platelets 6.1 % (1.1-6.1); Lymphocytes # 1.4 K/mcL (0.6-4.6); Lymphocytes % 10.1 %; Mean Corpuscular Hemoglobin 29.8 pg (28.0-33.3); Mean Platelet Volume 9.9 fL (9.4-12.4); Monocytes # 1.2 K/mcL (0.0-1.3); Monocytes % 8.7 %; Neutrophils # 10.9 K/mcL (1.6-8.9); Platelet Count 331 K/mcL (140-400); Red Blood Count 4.59 M/mcL (3.82-4.97); Red Cell Distribution Width 11.9 % (11.5-14.5); Segmented Neutrophils % 79.8 %; White Blood Count 13.6 K/mcL (4.3-11.1)
[2018-11-29] MEDS ORDERED: Naloxone 0.4 MG/ML INJ IVP PRN (02:08)
[2018-11-29] MEDS ORDERED: Ondansetron ODT 4 MG TAB.RAPDIS SL PRN (02:08)
[2018-11-29 02:29] LABS: Mean Corpuscular HGB Conc 38.3 g/dL (31.6-35.5)
[2018-11-29] MEDS ORDERED: *HR* Dextrose 50 % in Water (Syg) 50 ML SYRINGE IVP PRN ×2 (03:30→14:49)
[2018-11-29] MEDS ORDERED: D5% in Water 1,000 ML IVC PRN ×2 (03:30→14:49)
[2018-11-29] MEDS ORDERED: Dextrose Gel 15 GM/37.5 ML TUBE PO PRN ×4 (03:30→14:49)
[2018-11-29 04:16] LABS: Basophils % 0.4 %; Hemoglobin 13.7 g/dL (11.5-15.4); Mean Platelet Volume 9.9 fL (9.4-12.4); Red Cell Distribution Width 11.9 % (11.5-14.5)
[2018-11-29 04:20] LABS: Basophils # 0.1 K/mcL (0.0-0.2); Eosinophils % 0.9 %; Hematocrit 35.8 % (35.3-44.9); Immature Granulocytes % 0.6 % (0-4); Lymphocytes # 2.3 K/mcL (0.6-4.6); Lymphocytes % 14.5 %; Mean Corpuscular Hemoglobin 29.6 pg (28.0-33.3); Mean Corpuscular Volume 77.3 fL (83.0-100.0); Monocytes # 1.3 K/mcL (0.0-1.3); Monocytes % 8.3 %; Platelet Count 347 K/mcL (140-400); Red Blood Count 4.63 M/mcL (3.82-4.97); Segmented Neutrophils % 75.3 %; White Blood Count 15.9 K/mcL (4.3-11.1)
[2018-11-29 04:32] LABS: Alanine Aminotransferase 16 Units/L (7-52); Albumin 4.2 g/dL (3.5-5.7); Albumin/Globulin Ratio 2.1 (1.1-2.2); Alkaline Phosphatase 100 Units/L (34-104); Aspartate Amino Transferase 17 Units/L (13-39); BUN/Creatinine Ratio 13 (6-26); Bilirubin,Total 0.9 mg/dL (0.3-1.0); Blood Urea Nitrogen 13 mg/dL (6-20); Calcium 8.8 mg/dL (8.6-10.3); Carbon Dioxide 32 mEq/L (23-29); Chloride 66 mEq/L (98-107); Glucose 295 mg/dL (70-105); Magnesium 0.8 mg/dL (1.6-2.6); Osmolality,Calculated 239 (280-300); Phosphorous 3.2 mg/dL (2.7-4.5); Potassium 2.7 mEq/L (3.5-5.1); Sodium 109 mEq/L (136-145); Total Protein 6.2 g/dL (6.4-8.9); eGFR For African Americans > 60 (> 60); eGFR For Non-African Americans 59 (> 60)
[2018-11-29] MEDS: *HR* Heparin 5,000 UNIT/ML VIAL SQ SCH ×2 (04:50→16:56)
[2018-11-29 04:54] LABS: Eosinophils # 0.1 K/mcL (0.0-0.6); Mean Corpuscular HGB Conc 38.3 g/dL (31.6-35.5)
[2018-11-29 05:34] LABS: Thyroid Stimulating Hormone 0.909 mcIU/mL (0.340-5.600)
[2018-11-29] MEDS ORDERED: Insulin LISPRO 300 UNITS/3 ML VIAL SQ SCH ×2 (07:30→21:00)
[2018-11-29] MEDS: Isosorbide MONOnitrate (24 HR) 60 MG TAB.ER.24H PO SCH (08:29)
[2018-11-29] MEDS: Aspirin Enteric Coated 81 MG Tablet PO SCH (08:29)
[2018-11-29 08:41] LABS: Estimated Average Glucose 206 mg/dl
[2018-11-29] MEDS ORDERED: hydrALAZINE 10 MG TABLET PO PRN (11:55)
[2018-11-29 13:21] LABS: Potassium 3.8 mEq/L (3.5-5.1)
[2018-11-29 13:22] LABS: Magnesium 1.5 mg/dL (1.6-2.6)
[2018-11-29] MEDS ORDERED: 0.9 % Sodium Chloride 1,000 ML IVC SCH (13:30)
[2018-11-29] MEDS: Insulin LISPRO 300 UNITS/3 ML VIAL SQ SCH ×2 (16:56→22:25)
[2018-11-30 03:42] LABS: Hematocrit 34.2 % (35.3-44.9); Hemoglobin 12.9 g/dL (11.5-15.4); Mean Platelet Volume 9.6 fL (9.4-12.4); Red Cell Distribution Width 11.8 % (11.5-14.5)
[2018-11-30 03:43] LABS: Basophils # 0.1 K/mcL (0.0-0.2); Basophils % 0.3 %; Eosinophils # 0.3 K/mcL (0.0-0.6); Eosinophils % 1.9 %; Immature Granulocytes % 0.7 % (0-4); Lymphocytes # 3.3 K/mcL (0.6-4.6); Lymphocytes % 18.9 %; Mean Corpuscular Hemoglobin 29.8 pg (28.0-33.3); Monocytes # 1.6 K/mcL (0.0-1.3); Monocytes % 9.4 %; Neutrophils # 11.9 K/mcL (1.6-8.9); Platelet Count 375 K/mcL (140-400); Red Blood Count 4.33 M/mcL (3.82-4.97); Segmented Neutrophils % 68.8 %; White Blood Count 17.3 K/mcL (4.3-11.1)
[2018-11-30 03:44] LABS: Mean Corpuscular HGB Conc 37.7 g/dL (31.6-35.5)
[2018-11-30 03:57] LABS: BUN/Creatinine Ratio 17 (6-26); Blood Urea Nitrogen 15 mg/dL (6-20); Calcium 9.1 mg/dL (8.6-10.3); Carbon Dioxide 27 mEq/L (23-29); Chloride 77 mEq/L (98-107); Glucose 47 mg/dL (70-105); Osmolality,Calculated 234 (280-300); Potassium 3.3 mEq/L (3.5-5.1); Sodium 113 mEq/L (136-145); eGFR For African Americans > 60 (> 60); eGFR For Non-African Americans > 60 (> 60)
[2018-11-30] MEDS: *HR* Heparin 5,000 UNIT/ML VIAL SQ SCH ×2 (05:08→17:01)
[2018-11-30] MEDS: Aspirin Enteric Coated 81 MG Tablet PO SCH (07:28)
[2018-11-30] MEDS: Isosorbide MONOnitrate (24 HR) 60 MG TAB.ER.24H PO SCH (07:29)
[2018-11-30] MEDS: Insulin LISPRO 300 UNITS/3 ML VIAL SQ SCH ×4 (07:36→20:05)
[2018-11-30] MEDS: 0.9 % Sodium Chloride 1,000 ML IVC SCH (15:04)
[2018-12-01] MEDS ORDERED: *HR* Metoprolol 5 MG/5 ML VIAL IVP ONE ×2 (04:24→04:25)
[2018-12-01] MEDS ORDERED: Haloperidol Lactate 5 MG/ML VIAL ONE (04:58)
[2018-12-01] MEDS ORDERED: *HR* Promethazine 25 MG/ML VIAL ONE (04:58)
[2018-12-01] MEDS ORDERED: *HR* Promethazine 25 MG/ML VIAL IVP ONE (05:29)
[2018-12-01] MEDS ORDERED: Haloperidol Lactate 5 MG/ML VIAL IVP ONE (05:29)
[2018-12-01] MEDS: *HR* Heparin 5,000 UNIT/ML VIAL SQ SCH ×2 (06:02→17:06)
[2018-12-01] MEDS ORDERED: diazePAM 10 MG/2 ML SYRINGE IVP STA (07:00)
[2018-12-01] MEDS ORDERED: ARIPiprazole 10 MG TABLET PO SCH (09:00)
[2018-12-01] MEDS: Insulin LISPRO 300 UNITS/3 ML VIAL SQ SCH ×3 (09:35→17:06)
[2018-12-01] MEDS: Aspirin Enteric Coated 81 MG Tablet PO SCH (09:35)
[2018-12-01] MEDS: Isosorbide MONOnitrate (24 HR) 60 MG TAB.ER.24H PO SCH (09:35)
[2018-12-01 09:41] LABS: Basophils # 0.1 K/mcL (0.0-0.2); Basophils % 0.4 %; Eosinophils # 0.1 K/mcL (0.0-0.6); Eosinophils % 0.7 %; Hematocrit 33.7 % (35.3-44.9); Hemoglobin 12.6 g/dL (11.5-15.4); Immature Granulocytes % 1.1 % (0-4); Lymphocytes # 2.5 K/mcL (0.6-4.6); Lymphocytes % 13.3 %; Mean Corpuscular Hemoglobin 30.1 pg (28.0-33.3); Mean Corpuscular Volume 80.4 fL (83.0-100.0); Mean Platelet Volume 10.2 fL (9.4-12.4); Monocytes # 2.3 K/mcL (0.0-1.3); Monocytes % 11.9 %; Neutrophils # 13.8 K/mcL (1.6-8.9); Platelet Count 301 K/mcL (140-400); Red Blood Count 4.19 M/mcL (3.82-4.97); Red Cell Distribution Width 11.9 % (11.5-14.5); Segmented Neutrophils % 72.6 %
[2018-12-01 09:43] LABS: Mean Corpuscular HGB Conc 37.4 g/dL (31.6-35.5)
[2018-12-01 11:11] LABS: Calcium 9.5 mg/dL (8.6-10.3); Potassium 3.3 mEq/L (3.5-5.1)
[2018-12-01] MEDS ORDERED: 0.9 % Sodium Chloride 1,000 ML IVC SCH ×2 (11:21→19:08)
[2018-12-01] MEDS: Haloperidol Lactate 5 MG/ML VIAL IM PRN ×3 (12:50→21:00)
[2018-12-01] MEDS: Nicotine 21 MG PATCH.TD24 TD SCH (13:20)
[2018-12-01] MEDS ORDERED: *HR* Promethazine 25 MG/ML VIAL IVP PRN (22:54)
[2018-12-02 01:41] LABS: Basophils # 0.1 K/mcL (0.0-0.2); Basophils % 0.3 %; Hematocrit 32.8 % (35.3-44.9); Lymphocytes % 8.4 %
[2018-12-02] MEDS: Insulin LISPRO 300 UNITS/3 ML VIAL SQ SCH ×5 (01:42→21:41)
[2018-12-02 02:00] LABS: BUN/Creatinine Ratio 20 (6-26); Blood Urea Nitrogen 21 mg/dL (6-20); Calcium 9.1 mg/dL (8.6-10.3); Carbon Dioxide 22 mEq/L (23-29); Chloride 81 mEq/L (98-107); Glucose 210 mg/dL (70-105); Magnesium 0.9 mg/dL (1.6-2.6); Osmolality,Calculated 255 (280-300); Potassium 3.8 mEq/L (3.5-5.1); Sodium 118 mEq/L (136-145); eGFR For African Americans > 60 (> 60); eGFR For Non-African Americans 54 (> 60)
[2018-12-02 02:24] LABS: Eosinophils # 0.1 K/mcL (0.0-0.6); Eosinophils % 0.4 %; Hemoglobin 12.2 g/dL (11.5-15.4); Immature Granulocytes % 0.9 % (0-4); Lymphocytes # 1.7 K/mcL (0.6-4.6); Mean Corpuscular Hemoglobin 29.6 pg (28.0-33.3); Mean Corpuscular Volume 79.6 fL (83.0-100.0); Mean Platelet Volume 10.1 fL (9.4-12.4); Monocytes # 1.7 K/mcL (0.0-1.3); Monocytes % 8.3 %; Neutrophils # 16.4 K/mcL (1.6-8.9); Platelet Count 324 K/mcL (140-400); Red Blood Count 4.12 M/mcL (3.82-4.97); Segmented Neutrophils % 81.7 %
[2018-12-02 02:26] LABS: Mean Corpuscular HGB Conc 37.2 g/dL (31.6-35.5)
[2018-12-02] MEDS: *HR* Heparin 5,000 UNIT/ML VIAL SQ SCH ×2 (03:24→16:58)
[2018-12-02] MEDS: Haloperidol Lactate 5 MG/ML VIAL IM PRN (03:26)
[2018-12-02] MEDS ORDERED: *HR* Promethazine 25 MG/ML VIAL IVP PRN (03:45)
[2018-12-02] MEDS ORDERED: 0.9 % Sodium Chloride 1,000 ML IVC SCH ×2 (06:59→14:48)
[2018-12-02] MEDS: Isosorbide MONOnitrate (24 HR) 60 MG TAB.ER.24H PO SCH (08:24)
[2018-12-02] MEDS: Aspirin Enteric Coated 81 MG Tablet PO SCH (08:24)
[2018-12-02] MEDS: Nicotine 21 MG PATCH.TD24 TD SCH (08:25)
[2018-12-02] MEDS: Haloperidol Lactate 5 MG/ML VIAL IVP PRN (11:59)
[2018-12-02] MEDS: Haloperidol Lactate 5 MG/ML VIAL IVP SCH ×2 (16:06→21:43)
[2018-12-02] MEDS: 0.9 % Sodium Chloride 1,000 ML IVC SCH (19:45)
[2018-12-03] MEDS: Haloperidol Lactate 5 MG/ML VIAL IVP PRN ×2 (00:44→11:18)
[2018-12-03 04:13] LABS: Basophils # 0.1 K/mcL (0.0-0.2); Basophils % 0.4 %; Eosinophils # 0.1 K/mcL (0.0-0.6); Eosinophils % 1.2 %; Hematocrit 29.6 % (35.3-44.9); Immature Granulocytes % 0.5 % (0-4); Lymphocytes # 2.5 K/mcL (0.6-4.6); Lymphocytes % 20.7 %; Mean Corpuscular HGB Conc 35.8 g/dL (31.6-35.5); Mean Corpuscular Hemoglobin 29.9 pg (28.0-33.3); Mean Corpuscular Volume 83.4 fL (83.0-100.0); Mean Platelet Volume 9.7 fL (9.4-12.4); Monocytes # 1.1 K/mcL (0.0-1.3); Monocytes % 9.5 %; Neutrophils # 8.1 K/mcL (1.6-8.9); Platelet Count 258 K/mcL (140-400); Red Blood Count 3.55 M/mcL (3.82-4.97); Segmented Neutrophils % 67.7 %
[2018-12-03 04:14] LABS: Hemoglobin 10.6 g/dL (11.5-15.4)
[2018-12-03 04:34] LABS: BUN/Creatinine Ratio 16 (6-26); Blood Urea Nitrogen 15 mg/dL (6-20); Calcium 8.2 mg/dL (8.6-10.3); Carbon Dioxide 25 mEq/L (23-29); Chloride 91 mEq/L (98-107); Glucose 146 mg/dL (70-105); Osmolality,Calculated 257 (280-300); Potassium 3.2 mEq/L (3.5-5.1); Sodium 122 mEq/L (136-145); eGFR For African Americans > 60 (> 60); eGFR For Non-African Americans > 60 (> 60)
[2018-12-03] MEDS: *HR* Heparin 5,000 UNIT/ML VIAL SQ SCH ×2 (05:13→16:53)
[2018-12-03] MEDS: 0.9 % Sodium Chloride 1,000 ML IVC SCH ×3 (07:19→19:01)
[2018-12-03] MEDS ORDERED: OLANZapine 10 MG VIAL IM ONE (07:37)
[2018-12-03] MEDS: Aspirin Enteric Coated 81 MG Tablet PO SCH (08:54)
[2018-12-03] MEDS: Nicotine 21 MG PATCH.TD24 TD SCH (08:54)
[2018-12-03] MEDS: Isosorbide MONOnitrate (24 HR) 60 MG TAB.ER.24H PO SCH (08:54)
[2018-12-03] MEDS: Haloperidol Lactate 5 MG/ML VIAL IVP SCH (08:56)
[2018-12-03] MEDS ORDERED: *HR* Dextrose 50 % in Water (Syg) 50 ML SYRINGE IVC ONE (09:02)
[2018-12-03] MEDS: Insulin LISPRO 300 UNITS/3 ML VIAL SQ SCH ×4 (09:33→20:17)
[2018-12-03] MEDS ORDERED: 0.9 % Sodium Chloride 1,000 ML IVC SCH (15:47)
[2018-12-03] MEDS ORDERED: OLANZapine 5 MG TAB.RAPDIS PO SCH (21:00)
[2018-12-04 00:53] LABS: Basophils # 0.1 K/mcL (0.0-0.2); Basophils % 0.5 %; Eosinophils # 0.2 K/mcL (0.0-0.6); Eosinophils % 1.8 %; Hematocrit 32.6 % (35.3-44.9); Hemoglobin 11.6 g/dL (11.5-15.4); Immature Granulocytes % 0.5 % (0-4); Lymphocytes # 2.6 K/mcL (0.6-4.6); Lymphocytes % 20.4 %; Mean Corpuscular HGB Conc 35.6 g/dL (31.6-35.5); Mean Corpuscular Hemoglobin 29.7 pg (28.0-33.3); Mean Corpuscular Volume 83.6 fL (83.0-100.0); Mean Platelet Volume 9.6 fL (9.4-12.4); Monocytes # 1.2 K/mcL (0.0-1.3); Monocytes % 9.2 %; Neutrophils # 8.7 K/mcL (1.6-8.9); Platelet Count 320 K/mcL (140-400); Red Cell Distribution Width 12.2 % (11.5-14.5); Segmented Neutrophils % 67.6 %; White Blood Count 12.9 K/mcL (4.3-11.1)
[2018-12-04 00:55] LABS: BUN/Creatinine Ratio 12 (6-26); Blood Urea Nitrogen 12 mg/dL (6-20); Calcium 8.6 mg/dL (8.6-10.3); Carbon Dioxide 26 mEq/L (23-29); Chloride 89 mEq/L (98-107); Glucose 237 mg/dL (70-105); Osmolality,Calculated 267 (280-300); Potassium 3.5 mEq/L (3.5-5.1); Sodium 125 mEq/L (136-145); eGFR For African Americans > 60 (> 60); eGFR For Non-African Americans 58 (> 60)
[2018-12-04] MEDS: *HR* Heparin 5,000 UNIT/ML VIAL SQ SCH ×2 (05:31→17:05)
[2018-12-04] MEDS: Nicotine 21 MG PATCH.TD24 TD SCH (08:10)
[2018-12-04] MEDS: Isosorbide MONOnitrate (24 HR) 60 MG TAB.ER.24H PO SCH (08:10)
[2018-12-04] MEDS: Aspirin Enteric Coated 81 MG Tablet PO SCH (08:10)
[2018-12-04] MEDS: Insulin LISPRO 300 UNITS/3 ML VIAL SQ SCH ×4 (08:17→21:47)
[2018-12-04] MEDS: 0.9 % Sodium Chloride 1,000 ML IVC SCH ×2 (08:41→22:02)
[2018-12-04] MEDS ORDERED: OLANZapine 10 MG TAB.RAPDIS PO SCH (21:00)
[2018-12-04] MEDS: OLANZapine 10 MG TAB.RAPDIS PO SCH (21:46)
[2018-12-05 01:10] LABS: BUN/Creatinine Ratio 15 (6-26); Blood Urea Nitrogen 13 mg/dL (6-20); Carbon Dioxide 24 mEq/L (23-29); Chloride 97 mEq/L (98-107); Glucose 108 mg/dL (70-105); Osmolality,Calculated 275 (280-300); Potassium 3.8 mEq/L (3.5-5.1); Sodium 132 mEq/L (136-145); eGFR For African Americans > 60 (> 60); eGFR For Non-African Americans > 60 (> 60)
[2018-12-05 01:16] LABS: Basophils # 0.1 K/mcL (0.0-0.2); Basophils % 0.6 %; Eosinophils # 0.3 K/mcL (0.0-0.6); Eosinophils % 2.5 %; Hematocrit 28.5 % (35.3-44.9); Immature Granulocytes % 0.5 % (0-4); Lymphocytes # 2.9 K/mcL (0.6-4.6); Lymphocytes % 22.3 %; Mean Corpuscular HGB Conc 34.4 g/dL (31.6-35.5); Mean Corpuscular Hemoglobin 29.1 pg (28.0-33.3); Mean Corpuscular Volume 84.6 fL (83.0-100.0); Mean Platelet Volume 9.8 fL (9.4-12.4); Monocytes # 0.9 K/mcL (0.0-1.3); Monocytes % 7.2 %; Neutrophils # 8.7 K/mcL (1.6-8.9); Platelet Count 255 K/mcL (140-400); Red Blood Count 3.37 M/mcL (3.82-4.97); Red Cell Distribution Width 12.2 % (11.5-14.5); Segmented Neutrophils % 66.9 %; White Blood Count 12.9 K/mcL (4.3-11.1)
[2018-12-05 01:23] LABS: Hemoglobin 9.8 g/dL (11.5-15.4)
[2018-12-05] MEDS: *HR* Heparin 5,000 UNIT/ML VIAL SQ SCH ×2 (06:03→18:57)
[2018-12-05] MEDS: Nicotine 21 MG PATCH.TD24 TD SCH (08:58)
[2018-12-05] MEDS: Aspirin Enteric Coated 81 MG Tablet PO SCH (09:00)
[2018-12-05] MEDS: Insulin LISPRO 300 UNITS/3 ML VIAL SQ SCH ×4 (09:03→20:51)
[2018-12-05] MEDS: 0.9 % Sodium Chloride 1,000 ML IVC SCH ×2 (18:57→21:24)
[2018-12-05] MEDS: OLANZapine 10 MG TAB.RAPDIS PO SCH (20:50)
[2018-12-06] MEDS: *HR* Heparin 5,000 UNIT/ML VIAL SQ SCH (05:46)
[2018-12-06] MEDS: Aspirin Enteric Coated 81 MG Tablet PO SCH (08:30)
[2018-12-06] MEDS: Insulin LISPRO 300 UNITS/3 ML VIAL SQ SCH ×2 (08:31→12:33)
[2018-12-06] MEDS: Nicotine 21 MG PATCH.TD24 TD SCH (08:35)
[2018-12-06 09:25] LABS: BUN/Creatinine Ratio 15 (6-26); Blood Urea Nitrogen 15 mg/dL (6-20); Calcium 8.2 mg/dL (8.6-10.3); Carbon Dioxide 23 mEq/L (23-29); Chloride 102 mEq/L (98-107); Glucose 175 mg/dL (70-105); Osmolality,Calculated 277 (280-300); Potassium 4.4 mEq/L (3.5-5.1); Sodium 131 mEq/L (136-145); eGFR For African Americans > 60 (> 60); eGFR For Non-African Americans 57 (> 60)
[2018-12-06 11:29] VITALS: BP 126/69
== END 2018-12-06 17:18 | disposition home or self-care (01) | DRG 426 ==
LOC: EMEROOARM 23:42 → 2NNU 23:42 → OBSVTOIN 11-29 02:30 → SUATTDRO 11-29 02:30 → 2NNU 11-29 03:07 → 3ANU 12-05 12:50
PROVIDERS: ADMIT Internal Medicine; ATTEND Internal Medicine

== ENCOUNTER 2019-08-29 16:43 | Inpatient (IN) ==
[2019-08-29 20:11] LABS: Basophils % 0.4 %; Eosinophils # 0.2 K/mcL (0.0-0.6); Eosinophils % 1.8 %; Hematocrit 38.2 % (35.3-44.9); Hemoglobin 13.3 g/dL (11.5-15.4); INR 1.2; Immature Granulocytes % 0.3 % (0-4); Lymphocytes % 19.8 %; Mean Corpuscular HGB Conc 34.8 g/dL (31.6-35.5); Mean Corpuscular Hemoglobin 28.3 pg (28.0-33.3); Mean Corpuscular Volume 81.3 fL (83.0-100.0); Mean Platelet Volume 10.1 fL (9.4-12.4); Monocytes # 0.9 K/mcL (0.0-1.3); Monocytes % 8.8 %; Neutrophils # 6.9 K/mcL (1.6-8.9); Platelet Count 271 K/mcL (140-400); Prothrombin Time 13.9 Seconds (9.4-12.1); Red Cell Distribution Width 12.2 % (11.5-14.5); Segmented Neutrophils % 68.9 %
[2019-08-29 20:14] LABS: Activated Partial Thrombo Time 37.3 Seconds (26.0-36.0)
[2019-08-29 20:27] LABS: Bilirubin,Urine Negative (Negative); Blood,Urine Negative (Negative); Clarity,Urine Clear (Clear); Color,Urine Colorless (Yellow); Glucose,Urine (UA) 150 mg/dL (Normal); Ketones,Urine Negative (Negative); Leukocyte Esterase,Urine Negative (Negative); Nitrite,Urine Negative (Negative); Protein,Urine Negative (Neg-Trace); Specific Gravity,Urine 1.007 (1.010-1.025); Urobilinogen,Urine Normal (Normal)
[2019-08-29 20:29] LABS: Acetaminophen < 10 mcg/mL (10-20); Alanine Aminotransferase 13 Units/L (7-52); Albumin 4.4 g/dL (3.5-5.7); Albumin/Globulin Ratio 1.8 (1.1-2.2); Alkaline Phosphatase 113 Units/L (34-104); Aspartate Amino Transferase 16 Units/L (13-39); BUN/Creatinine Ratio 8 (6-26); Bilirubin,Direct 0.1 mg/dL (0.0-0.2); Bilirubin,Indirect 0.3 mg/dL (0.0-1.0); Bilirubin,Total 0.4 mg/dL (0.3-1.0); Blood Urea Nitrogen 8 mg/dL (6-20); Calcium 9.1 mg/dL (8.6-10.3); Carbon Dioxide 26 mEq/L (23-29); Chloride 93 mEq/L (98-107); Ethanol 10 mg/dL (Less than 10); Globulin 2.4 g/dL (2.4-3.5); Glucose 201 mg/dL (70-105); Osmolality,Calculated 266 (280-300); Potassium 4.4 mEq/L (3.5-5.1); Salicylate < 2.5 mg/dL (15.0-30.0); Sodium 126 mEq/L (136-145); Total Protein 6.8 g/dL (6.4-8.9); Troponin I < 0.03 ng/mL (< 0.04); eGFR For African Americans > 60 (> 60); eGFR For Non-African Americans 58 (> 60)
[2019-08-29 20:32] LABS: Amphetamine Screen,Urine Negative ng/mL (Cutoff=1000); Barbiturate Screen,Urine Negative ng/mL (Cutoff=200); Benzodiazepines Screen,Urine Negative ng/mL (Cutoff=200); Cannabinoid Screen,Urine Negative ng/mL (Cutoff = 50); Cocaine Screen,Urine Negative ng/mL (Cutoff= 300); Opiate Screen,Urine Negative ng/mL (Cutoff=300); Phencyclidine Screen,Urine Negative ng/mL (Cutoff=25)
[2019-08-29 20:42] LABS: Thyroid Stimulating Hormone 0.065 mcIU/mL (0.340-5.600)
[2019-08-29] MEDS ORDERED: 0.9 % Sodium Chloride 1,000 ML IVC SCH (22:30)
[2019-08-29] MEDS ORDERED: Naloxone 0.4 MG/ML INJ IVP PRN (22:48)
[2019-08-29] MEDS ORDERED: Ammonium Lactate 30 APPL/225 GM BOTTLE TP PRN (22:51)
[2019-08-29] MEDS ORDERED: D5% in Water 1,000 ML IVC PRN (22:53)
[2019-08-29] MEDS ORDERED: Dextrose Gel 15 GM/37.5 ML TUBE PO PRN ×2 (22:53)
[2019-08-29] MEDS ORDERED: *HR* Dextrose 50 % in Water (Vial) 50 ML VIAL IVP PRN (22:53)
[2019-08-30 03:39] LABS: BUN/Creatinine Ratio 9 (6-26); Blood Urea Nitrogen 9 mg/dL (6-20); Calcium 9.2 mg/dL (8.6-10.3); Carbon Dioxide 25 mEq/L (23-29); Chloride 95 mEq/L (98-107); Glucose 150 mg/dL (70-105); Osmolality,Calculated 270 (280-300); Potassium 3.9 mEq/L (3.5-5.1); Sodium 129 mEq/L (136-145); eGFR For African Americans > 60 (> 60); eGFR For Non-African Americans 58 (> 60)
[2019-08-30 03:52] LABS: Thyroid Stimulating Hormone 0.068 mcIU/mL (0.340-5.600)
[2019-08-30] MEDS: *HR* Heparin 5,000 UNIT/ML VIAL SQ SCH ×3 (05:52→20:33)
[2019-08-30] MEDS: Insulin LISPRO 300 UNITS/3 ML VIAL SQ SCH ×3 (07:51→17:55)
[2019-08-30] MEDS ORDERED: NON-FORMULARY MEDICATION 1 EACH EACH (Insulin Glargine,Hum.Rec.Anlog [Basaglar Kwikpen U-1 SQ SCH ×2 (09:00→18:00)
[2019-08-30] MEDS: Isosorbide MONOnitrate (24 HR) 60 MG TAB.ER.24H PO SCH ×2 (10:44→12:08)
[2019-08-30] MEDS: Insulin DETEMIR 100 UNIT/ML X5UNITS SQ SCH ×2 (10:44→18:05)
[2019-08-30] MEDS: Aspirin Enteric Coated 81 MG Tablet PO SCH ×2 (10:44→12:09)
[2019-08-30] MEDS: lisinopriL 10 MG TABLET PO SCH ×2 (10:45→12:09)
[2019-08-30] MEDS: methIMAzole 5 MG TABLET PO SCH (16:33)
[2019-08-30] MEDS: Nicotine 21 MG PATCH.TD24 TD SCH (17:55)
[2019-08-30] MEDS: QUEtiapine Fumarate 25 MG TABLET PO PRN (20:32)
[2019-08-30] MEDS ORDERED: Ondansetron 4 MG/2 ML VIAL IVP PRN (21:30)
[2019-08-31] MEDS: QUEtiapine Fumarate 25 MG TABLET PO PRN ×2 (00:54→14:55)
[2019-08-31] MEDS: *HR* Heparin 5,000 UNIT/ML VIAL SQ SCH ×3 (04:07→21:13)
[2019-08-31 04:31] LABS: BUN/Creatinine Ratio 16 (6-26); Blood Urea Nitrogen 18 mg/dL (6-20); Calcium 9.6 mg/dL (8.6-10.3); Carbon Dioxide 27 mEq/L (23-29); Chloride 94 mEq/L (98-107); Glucose 114 mg/dL (70-105); Osmolality,Calculated 271 (280-300); Potassium 3.9 mEq/L (3.5-5.1); Sodium 129 mEq/L (136-145); eGFR For African Americans > 60 (> 60); eGFR For Non-African Americans 50 (> 60)
[2019-08-31] MEDS: Nicotine 21 MG PATCH.TD24 TD SCH (08:55)
[2019-08-31] MEDS: Aspirin Enteric Coated 81 MG Tablet PO SCH (08:56)
[2019-08-31] MEDS: Isosorbide MONOnitrate (24 HR) 60 MG TAB.ER.24H PO SCH (08:57)
[2019-08-31] MEDS: methIMAzole 5 MG TABLET PO SCH (08:57)
[2019-08-31] MEDS: lisinopriL 10 MG TABLET PO SCH (08:57)
[2019-08-31] MEDS: Insulin DETEMIR 100 UNIT/ML X5UNITS SQ SCH ×2 (08:58→19:37)
[2019-08-31] MEDS: Insulin LISPRO 300 UNITS/3 ML VIAL SQ SCH ×3 (08:58→16:00)
[2019-09-01 02:10] LABS: Calcium 8.8 mg/dL (8.6-10.3); Potassium 4.7 mEq/L (3.5-5.1)
[2019-09-01] MEDS: *HR* Heparin 5,000 UNIT/ML VIAL SQ SCH ×3 (04:16→20:45)
[2019-09-01] MEDS: Insulin LISPRO 300 UNITS/3 ML VIAL SQ SCH ×3 (09:26→17:33)
[2019-09-01] MEDS: Aspirin Enteric Coated 81 MG Tablet PO SCH (09:43)
[2019-09-01] MEDS: Nicotine 21 MG PATCH.TD24 TD SCH (09:43)
[2019-09-01] MEDS: Isosorbide MONOnitrate (24 HR) 60 MG TAB.ER.24H PO SCH (09:44)
[2019-09-01] MEDS: methIMAzole 5 MG TABLET PO SCH (09:44)
[2019-09-01] MEDS: Insulin DETEMIR 100 UNIT/ML X5UNITS SQ SCH ×2 (09:50→20:44)
[2019-09-01 11:40] LABS: Total Volume 24 Hour,Urine 2.4 Liters (0.60-1.60)
[2019-09-01 12:10] LABS: Sodium, Urine 67.5 mEq/L
[2019-09-01] MEDS: QUEtiapine Fumarate 25 MG TABLET PO PRN (12:41)
[2019-09-02 04:07] LABS: Calcium 9.8 mg/dL (8.6-10.3); Potassium 4.1 mEq/L (3.5-5.1)
[2019-09-02] MEDS ORDERED: *HR* Dextrose 50 % in Water (Vial) 50 ML VIAL IVP ONE (05:34)
[2019-09-02] MEDS: *HR* Heparin 5,000 UNIT/ML VIAL SQ SCH (05:45)
[2019-09-02] MEDS: methIMAzole 5 MG TABLET PO SCH (07:39)
[2019-09-02] MEDS: Aspirin Enteric Coated 81 MG Tablet PO SCH (07:39)
[2019-09-02] MEDS: Insulin LISPRO 300 UNITS/3 ML VIAL SQ SCH ×2 (07:40→12:58)
[2019-09-02] MEDS: Isosorbide MONOnitrate (24 HR) 60 MG TAB.ER.24H PO SCH (07:40)
[2019-09-02] MEDS: Nicotine 21 MG PATCH.TD24 TD SCH (07:40)
[2019-09-02] MEDS: QUEtiapine Fumarate 25 MG TABLET PO PRN (07:40)
[2019-09-02] MEDS: Insulin DETEMIR 100 UNIT/ML X5UNITS SQ SCH (07:49)
[2019-09-02 07:51] VITALS: BP 187/80
[2019-09-02] MEDS ORDERED: Insulin DETEMIR 100 UNIT/ML X5UNITS SQ SCH (09:00)
== END 2019-09-02 14:57 | disposition home or self-care (01) | DRG 426 ==
LOC: EMEROOARM 16:43 → 2ANU 16:43 → SUATTDRO 22:29 → 2ANU 23:19
PROVIDERS: ADMIT Internal Medicine; ATTEND Family Medicine

== ENCOUNTER 2021-07-06 18:48 | Inpatient (IN) ==
[2021-07-06] MEDS ORDERED: Ipratropium/Albuterol Neb 3 ML IH ONE (19:12)
[2021-07-06] MEDS ORDERED: 0.9 % Sodium Chloride 1,000 ML IVC ONE (19:12)
[2021-07-06 20:04] LABS: Basophils % 0.2 %; Eosinophils % 0.1 %; Hematocrit 44.1 % (35.3-44.9); Hemoglobin 12.5 g/dL (11.5-15.4); Immature Granulocytes % 0.8 % (0-4); Lymphocytes # 0.5 K/mcL (0.6-4.6); Mean Corpuscular HGB Conc 28.3 g/dL (31.6-35.5); Mean Corpuscular Hemoglobin 28.5 pg (28.0-33.3); Mean Corpuscular Volume 100.7 fL (83.0-100.0); Mean Platelet Volume 10.4 fL (9.4-12.4); Monocytes # 0.9 K/mcL (0.0-1.3); Monocytes % 6.5 %; Neutrophils # 11.6 K/mcL (1.6-8.9); Platelet Count 273 K/mcL (140-400); Red Blood Count 4.38 M/mcL (3.82-4.97); Red Cell Distribution Width 12.9 % (11.5-14.5); Segmented Neutrophils % 88.4 %; White Blood Count 13.1 K/mcL (4.3-11.1)
[2021-07-06 20:08] LABS: ABG Base Excess -12 mEq/L (-2 to 3); ABG HCO3 18 mEq/L (21-27); ABG Oxygen Saturation 98 % (95-98); ABG PCO2 51 mmHg (35-45); ABG PH 7.14 pH Units (7.32-7.45); ABG PO2 136 mmHg (85-104); ABG TCO2 19 mEq/L (20-26); Blood Gas VT 450 cc
[2021-07-06 20:41] LABS: Albumin/Globulin Ratio 1.6 (1.1-2.2); Bilirubin,Indirect 0.2 mg/dL (0.0-1.0); Bilirubin,Total 0.2 mg/dL (0.3-1.0); Calcium 7.2 mg/dL (8.6-10.3); Globulin 2.5 g/dL (2.4-3.5); Total Protein 6.5 g/dL (6.4-8.9); Troponin I 0.06 ng/mL (< 0.04)
[2021-07-06 20:43] LABS: Platelet Estimate Normal (Normal)
[2021-07-06 20:59] LABS: Bilirubin,Urine Negative (Negative); Blood,Urine Negative (Negative); Clarity,Urine Clear (Clear); Color,Urine Colorless (Yellow); Glucose,Urine (UA) >=1000 mg/dL (Normal); Ketones,Urine Negative (Negative); Leukocyte Esterase,Urine Negative (Negative); Mucus,Urine Few per lpf (None-Few); Nitrite,Urine Negative (Negative); Protein,Urine Negative (Neg-Trace); RBC,Urine 0-3 per hpf (0-3); Specific Gravity,Urine 1.014 (1.010-1.025); Squamous Epithelial Cell,Urine Few per hpf (None-Few); Urobilinogen,Urine Normal (Normal); WBC,Urine 0-3 per hpf (0-3)
[2021-07-06] MEDS ORDERED: Insulin Regular, Human 100 UNIT/ML IV ONE (21:00)
[2021-07-06] MEDS ORDERED: Aspirin 81 MG TAB.CHEW PO STA (21:02)
[2021-07-06] MEDS ORDERED: *HR* Heparin 5,000 UNIT/ML VIAL IVP ONE ×2 (21:05→21:10)
[2021-07-06] MEDS ORDERED: *HR* Heparin 5,000 UNIT/ML VIAL IVP PRN ×2 (21:10)
[2021-07-06] MEDS: 0.9 % Sodium Chloride 1,000 ML IVC SCH ×2 (21:26→22:19)
[2021-07-06] MEDS: Heparin 25,000UNIT/250ML 1/2NS 25,000 UNIT/250 ML IV.SOLN IVC SCH (21:28)
[2021-07-06] MEDS ORDERED: Isovue-370 500 ML BOTTLE IVP ONE (21:39)
[2021-07-06 23:23] LABS: Amphetamine Screen,Urine Negative ng/mL (Cutoff=1000); Barbiturate Screen,Urine Negative ng/mL (Cutoff=200); Benzodiazepines Screen,Urine Negative ng/mL (Cutoff=200); Cannabinoid Screen,Urine Negative ng/mL (Cutoff = 50); Cocaine Screen,Urine Negative ng/mL (Cutoff= 300); Opiate Screen,Urine Negative ng/mL (Cutoff=300); Phencyclidine Screen,Urine Negative ng/mL (Cutoff=25)
[2021-07-06] MEDS ORDERED: Naloxone 0.4 MG/ML INJ IVP PRN (23:37)
[2021-07-06 23:44] LABS: C-Reactive Protein < 5 mg/L (Less than 10); Glucose 677 mg/dL (70-105)
[2021-07-06] MEDS ORDERED: Piperacillin/Tazobactam 3.375 GM in 0.9 % Sodium Chloride Mini Bag 100 ML IVPB ONE (23:44)
[2021-07-06 23:47] LABS: Adenovirus Not Detected (Not Detect); Bordetella Pertussis Not Detected (Not Detect); Chlamydophila pneumoniae Not Detected (Not Detect); Coronavirus 229E Not Detected (Not Detect); Coronavirus HKU1 Not Detected (Not Detect); Coronavirus NL63 Not Detected (Not Detect); Coronavirus OC43 Not Detected (Not Detect); Human Metapneumovirus Not Detected (Not Detect); Human Rhinovirus/Enterovirus Not Detected (Not Detect); Influenza A Subtype 2009 H1 Not Detected (Not Detect); Influenza B Not Detected (Not Detect); Mycoplasma pneumoniae Not Detected (Not Detect); Parainfluenza Virus 1 Not Detected (Not Detect); Parainfluenza Virus 2 Not Detected (Not Detect); Parainfluenza Virus 3 Not Detected (Not Detect); Parainfluenza Virus 4 Not Detected (Not Detect); Respiratory Syncytial Virus Not Detected (Not Detect); SARS-CoV-2 Not Detected (Not Detect)
[2021-07-07] MEDS ORDERED: *HR* Dextrose 50 % in Water (Syg) 50 ML SYRINGE IVP PRN (00:40)
[2021-07-07] MEDS ORDERED: D5% in 0.45% NACL 1,000 ML IVC PRN (00:40)
[2021-07-07] MEDS ORDERED: Ipratropium/Albuterol Neb 3 ML IH PRN (01:00)
[2021-07-07] MEDS ORDERED: 0.45 % Sodium Chloride w/KCl 20 MEQ/1,000 ML MLS IVC PRN (01:16)
[2021-07-07] MEDS ORDERED: D5% in 0.45% NACL w KCl 20 MEQ/1,000 ML MLS IVC PRN (01:16)
[2021-07-07 01:37] LABS: INR 1.5; Prothrombin Time 16.3 Seconds (9.4-12.1)
[2021-07-07 01:43] LABS: Heparin anti-factor XA UFH 1.33 IU/mL (0.30-0.70)
[2021-07-07 01:46] LABS: Calcium 8.1 mg/dL (8.6-10.3)
[2021-07-07 01:57] LABS: Estimated Average Glucose 166 mg/dl; Hemoglobin A1C 7.4 %
[2021-07-07 02:27] LABS: Beta-Hydroxybutyric Acid 0.1 mmol/L (0.02-0.27)
[2021-07-07 02:51] LABS: Procalcitonin 0.11 ng/mL (0.00-0.15)
[2021-07-07 03:29] LABS: ABG Base Excess -2 mEq/L (-2 to 3); ABG HCO3 21 mEq/L (21-27); ABG Oxygen Saturation 97 % (95-98); ABG PCO2 32 mmHg (35-45); ABG PH 7.43 pH Units (7.32-7.45); ABG PO2 88 mmHg (85-104); ABG TCO2 22 mEq/L (20-26)
[2021-07-07] MEDS ORDERED: Calcium Gluconate 1gm/50mL 1 GM/50 ML BAG IVPB ONE (03:50)
[2021-07-07] MEDS ORDERED: *HR* Labetalol 20 MG/4 ML SYRINGE IVP PRN (04:27)
[2021-07-07] MEDS ORDERED: Insulin DETEMIR 100 UNIT/ML X5UNITS SUBQ ONE (04:58)
[2021-07-07] MEDS: *HR* Labetalol 20 MG/4 ML SYRINGE IVP PRN ×3 (05:41→23:48)
[2021-07-07 06:36] LABS: Troponin I 2.26 ng/mL (< 0.04)
[2021-07-07 08:59] LABS: Magnesium 0.5 mg/dL (1.6-2.6); Phosphorous 3.7 mg/dL (2.7-4.5)
[2021-07-07] MEDS ORDERED: Doxycycline 100 MG CAPSULE PO SCH (09:00)
[2021-07-07 09:46] LABS: Basophils % 0.2 %; Hematocrit 37.9 % (35.3-44.9); Hemoglobin 12.5 g/dL (11.5-15.4); Immature Granulocytes % 0.6 % (0-4); Mean Corpuscular Hemoglobin 28.2 pg (28.0-33.3); Mean Corpuscular Volume 85.4 fL (83.0-100.0); Mean Platelet Volume 9.7 fL (9.4-12.4); Neutrophils # 18.3 K/mcL (1.6-8.9); Platelet Count 245 K/mcL (140-400); Red Blood Count 4.44 M/mcL (3.82-4.97); Red Cell Distribution Width 12.5 % (11.5-14.5); Segmented Neutrophils % 81.2 %; White Blood Count 22.5 K/mcL (4.3-11.1)
[2021-07-07 10:00] LABS: Basophils # 0.1 K/mcL (0.0-0.2)
[2021-07-07 10:01] LABS: Calcium 8.4 mg/dL (8.6-10.3); Potassium 3.6 mEq/L (3.5-5.1)
[2021-07-07] MEDS: cefTRIAXone 1,000 MG in 0.9 % Sodium Chloride 10 ML IVP SCH (10:09)
[2021-07-07] MEDS: Aspirin 81 MG TAB.CHEW PO SCH (10:10)
[2021-07-07] MEDS: Ipratropium/Albuterol Neb 3 ML IH SCH ×4 (11:14→23:53)
[2021-07-07 11:38] LABS: BUN/Creatinine Ratio 9 (6-26); Blood Urea Nitrogen 10 mg/dL (6-20); Calcium 8.4 mg/dL (8.6-10.3); Carbon Dioxide 23 mEq/L (23-29); Chloride 96 mEq/L (98-107); Glucose 166 mg/dL (70-105); Osmolality,Calculated 275 (280-300); Potassium 3.4 mEq/L (3.5-5.1); Sodium 131 mEq/L (136-145); eGFR For African Americans > 60 (> 60); eGFR For Non-African Americans 54 (> 60)
[2021-07-07] MEDS: Metoprolol XL (24 HR) Succ 50 MG TAB.ER.24H PO SCH ×2 (11:53→21:15)
[2021-07-07] MEDS: predniSONE 20 MG TABLET PO SCH (11:53)
[2021-07-07] MEDS ORDERED: amLODIPine 5 MG TABLET PO SCH (12:00)
[2021-07-07] MEDS ORDERED: Perflutren Lipid Microsphere 1.3 ML in 0.9 % Sodium Chloride 8.7 ML IVP PRN (12:02)
[2021-07-07] MEDS: Insulin LISPRO 300 UNITS/3 ML VIAL SUBQ SCH ×3 (14:11→21:05)
[2021-07-07] MEDS ORDERED: haloperidoL 5 MG TABLET PO PRN (19:47)
[2021-07-07] MEDS: Insulin DETEMIR 100 UNIT/ML X5UNITS SUBQ SCH (21:15)
[2021-07-07] MEDS: Melatonin 3 MG TABLET PO PRN (23:57)
[2021-07-08] MEDS: Ondansetron ODT 4 MG TAB.RAPDIS SL PRN ×2 (01:41→14:12)
[2021-07-08] MEDS: Ipratropium/Albuterol Neb 3 ML IH SCH ×5 (03:59→19:48)
[2021-07-08 04:42] LABS: Hematocrit 38.2 % (35.3-44.9); Hemoglobin 13.5 g/dL (11.5-15.4); Mean Corpuscular HGB Conc 35.3 g/dL (31.6-35.5); Mean Corpuscular Hemoglobin 28.8 pg (28.0-33.3); Mean Corpuscular Volume 81.4 fL (83.0-100.0); Platelet Count 242 K/mcL (140-400); Red Blood Count 4.69 M/mcL (3.82-4.97); Red Cell Distribution Width 12.2 % (11.5-14.5); White Blood Count 24.8 K/mcL (4.3-11.1)
[2021-07-08 05:04] LABS: BUN/Creatinine Ratio 13 (6-26); Blood Urea Nitrogen 12 mg/dL (6-20); Calcium 8.2 mg/dL (8.6-10.3); Carbon Dioxide 28 mEq/L (23-29); Chloride 77 mEq/L (98-107); Glucose 96 mg/dL (70-105); Osmolality,Calculated 248 (280-300); Sodium 119 mEq/L (136-145); eGFR For African Americans > 60 (> 60); eGFR For Non-African Americans > 60 (> 60)
[2021-07-08] MEDS ORDERED: 0.9 % Sodium Chloride 1,000 ML IVC SCH (05:15)
[2021-07-08 08:07] LABS: BUN/Creatinine Ratio 14 (6-26); Blood Urea Nitrogen 13 mg/dL (6-20); Calcium 8.1 mg/dL (8.6-10.3); Carbon Dioxide 31 mEq/L (23-29); Chloride 77 mEq/L (98-107); Glucose 93 mg/dL (70-105); Osmolality,Calculated 248 (280-300); Potassium 2.9 mEq/L (3.5-5.1); Sodium 119 mEq/L (136-145); eGFR For African Americans > 60 (> 60); eGFR For Non-African Americans > 60 (> 60)
[2021-07-08 08:45] LABS: ABG Base Excess 4 mEq/L (-2 to 3); ABG HCO3 28 mEq/L (21-27); ABG Oxygen Saturation 91 % (95-98); ABG PCO2 39 mmHg (35-45); ABG PH 7.47 pH Units (7.32-7.45); ABG PO2 58 mmHg (85-104); ABG TCO2 30 mEq/L (20-26)
[2021-07-08] MEDS ORDERED: amLODIPine 5 MG TABLET PO SCH (09:00)
[2021-07-08] MEDS: predniSONE 20 MG TABLET PO SCH (09:17)
[2021-07-08] MEDS: Aspirin 81 MG TAB.CHEW PO SCH (09:17)
[2021-07-08] MEDS: Metoprolol XL (24 HR) Succ 50 MG TAB.ER.24H PO SCH ×2 (09:17→20:32)
[2021-07-08] MEDS: cefTRIAXone 1,000 MG in 0.9 % Sodium Chloride 10 ML IVP SCH (09:18)
[2021-07-08] MEDS ORDERED: lisinopriL 5 MG TABLET PO SCH (10:00)
[2021-07-08 10:12] LABS: BUN/Creatinine Ratio 14 (6-26); Blood Urea Nitrogen 13 mg/dL (6-20); Calcium 7.8 mg/dL (8.6-10.3); Carbon Dioxide 27 mEq/L (23-29); Chloride 75 mEq/L (98-107); Glucose 130 mg/dL (70-105); Osmolality,Calculated 242 (280-300); Potassium 3.3 mEq/L (3.5-5.1); Sodium 115 mEq/L (136-145); eGFR For African Americans > 60 (> 60); eGFR For Non-African Americans > 60 (> 60)
[2021-07-08] MEDS: Insulin LISPRO 300 UNITS/3 ML VIAL SUBQ SCH ×4 (10:23→20:34)
[2021-07-08] MEDS: amLODIPine 5 MG TABLET PO SCH (10:27)
[2021-07-08] MEDS: Heparin 25,000UNIT/250ML 1/2NS 25,000 UNIT/250 ML IV.SOLN IVC SCH (11:12)
[2021-07-08 12:51] LABS: BUN/Creatinine Ratio 15 (6-26); Blood Urea Nitrogen 13 mg/dL (6-20); Calcium 7.8 mg/dL (8.6-10.3); Carbon Dioxide 30 mEq/L (23-29); Chloride 76 mEq/L (98-107); Glucose 119 mg/dL (70-105); Osmolality,Calculated 245 (280-300); Potassium 3.6 mEq/L (3.5-5.1); Sodium 117 mEq/L (136-145); eGFR For African Americans > 60 (> 60); eGFR For Non-African Americans > 60 (> 60)
[2021-07-08] MEDS: Isosorbide MONOnitrate (24 HR) 60 MG TAB.ER.24H PO SCH (15:23)
[2021-07-08] MEDS: Insulin DETEMIR 100 UNIT/ML X5UNITS SUBQ SCH (20:34)
[2021-07-08] MEDS: Melatonin 3 MG TABLET PO PRN (20:36)
[2021-07-08 22:42] LABS: BUN/Creatinine Ratio 18 (6-26); Blood Urea Nitrogen 20 mg/dL (6-20); Calcium 7.4 mg/dL (8.6-10.3); Carbon Dioxide 28 mEq/L (23-29); Chloride 75 mEq/L (98-107); Glucose 141 mg/dL (70-105); Osmolality,Calculated 247 (280-300); Potassium 3.8 mEq/L (3.5-5.1); Sodium 116 mEq/L (136-145); eGFR For African Americans > 60 (> 60); eGFR For Non-African Americans 51 (> 60)
[2021-07-09] MEDS: Ipratropium/Albuterol Neb 3 ML IH SCH ×7 (00:14→23:07)
[2021-07-09 02:21] LABS: Calcium 7.3 mg/dL (8.6-10.3); Potassium 3.8 mEq/L (3.5-5.1)
[2021-07-09 04:49] LABS: Hematocrit 36.5 % (35.3-44.9); Hemoglobin 13.1 g/dL (11.5-15.4); Mean Corpuscular HGB Conc 35.9 g/dL (31.6-35.5); Mean Corpuscular Hemoglobin 29.3 pg (28.0-33.3); Mean Corpuscular Volume 81.7 fL (83.0-100.0); Mean Platelet Volume 10.1 fL (9.4-12.4); Platelet Count 212 K/mcL (140-400); Red Blood Count 4.47 M/mcL (3.82-4.97); Red Cell Distribution Width 12.2 % (11.5-14.5); White Blood Count 20.4 K/mcL (4.3-11.1)
[2021-07-09 05:09] LABS: Calcium 7.4 mg/dL (8.6-10.3); Potassium 3.9 mEq/L (3.5-5.1)
[2021-07-09] MEDS: Ondansetron ODT 4 MG TAB.RAPDIS SL PRN (05:45)
[2021-07-09] MEDS: Heparin 25,000UNIT/250ML 1/2NS 25,000 UNIT/250 ML IV.SOLN IVC SCH ×2 (07:48→23:27)
[2021-07-09] MEDS: Insulin LISPRO 300 UNITS/3 ML VIAL SUBQ SCH ×4 (10:27→19:28)
[2021-07-09] MEDS: predniSONE 20 MG TABLET PO SCH (10:28)
[2021-07-09] MEDS: Isosorbide MONOnitrate (24 HR) 60 MG TAB.ER.24H PO SCH (10:28)
[2021-07-09] MEDS: Aspirin 81 MG TAB.CHEW PO SCH (10:28)
[2021-07-09] MEDS: amLODIPine 5 MG TABLET PO SCH (10:28)
[2021-07-09] MEDS: Metoprolol XL (24 HR) Succ 50 MG TAB.ER.24H PO SCH ×2 (10:28→20:35)
[2021-07-09] MEDS: cefTRIAXone 1,000 MG in 0.9 % Sodium Chloride 10 ML IVP SCH (10:29)
[2021-07-09] MEDS ORDERED: Tolvaptan 15 MG TABLET PO ONE (12:00)
[2021-07-09] MEDS: Chloraseptic Spray 177 ML BOTTLE MM PRN (12:38)
[2021-07-09 17:58] LABS: Creatinine,Urine 19 mg/dL; Microalbum/Creatinine Ratio,Ur 63 mcg/mg (Less than 30); Microalbumin,Urine 12 mg/L; Protein/Creatinine Ratio,Urine 0.26 mg/mg (0.00-0.20); Sodium, Urine < 10.0 mEq/L
[2021-07-09] MEDS: Insulin DETEMIR 100 UNIT/ML X5UNITS SUBQ SCH (20:34)
[2021-07-10 02:40] LABS: Hematocrit 37.8 % (35.3-44.9); Hemoglobin 12.9 g/dL (11.5-15.4); Mean Corpuscular HGB Conc 34.1 g/dL (31.6-35.5); Mean Corpuscular Hemoglobin 28.3 pg (28.0-33.3); Mean Corpuscular Volume 82.9 fL (83.0-100.0); Mean Platelet Volume 10.4 fL (9.4-12.4); Platelet Count 191 K/mcL (140-400); Red Blood Count 4.56 M/mcL (3.82-4.97); Red Cell Distribution Width 12.4 % (11.5-14.5); White Blood Count 15.3 K/mcL (4.3-11.1)
[2021-07-10 03:00] LABS: Magnesium 1.2 mg/dL (1.6-2.6); Potassium 3.8 mEq/L (3.5-5.1)
[2021-07-10] MEDS: Ipratropium/Albuterol Neb 3 ML IH SCH ×6 (03:43→23:29)
[2021-07-10] MEDS ORDERED: Magnesium Sulfate 1 GM/102 ML PIGGYBACK IVPB ONE (04:32)
[2021-07-10] MEDS: Insulin LISPRO 300 UNITS/3 ML VIAL SUBQ SCH ×4 (08:31→19:34)
[2021-07-10] MEDS: predniSONE 20 MG TABLET PO SCH (08:32)
[2021-07-10] MEDS: Aspirin 81 MG TAB.CHEW PO SCH (08:32)
[2021-07-10] MEDS: Metoprolol XL (24 HR) Succ 50 MG TAB.ER.24H PO SCH ×2 (08:32→19:17)
[2021-07-10] MEDS: cefTRIAXone 1,000 MG in 0.9 % Sodium Chloride 10 ML IVP SCH (08:33)
[2021-07-10] MEDS: Isosorbide MONOnitrate (24 HR) 60 MG TAB.ER.24H PO SCH (08:33)
[2021-07-10] MEDS: amLODIPine 5 MG TABLET PO SCH (08:33)
[2021-07-10 10:02] LABS: Calcium 8.3 mg/dL (8.6-10.3); Potassium 3.8 mEq/L (3.5-5.1)
[2021-07-10 15:09] LABS: Thyroid Stimulating Hormone 1.065 mcIU/mL (0.340-5.600)
[2021-07-10 16:27] LABS: Calcium 8.5 mg/dL (8.6-10.3); Potassium 4.2 mEq/L (3.5-5.1)
[2021-07-10] MEDS: *HR* Heparin 5,000 UNIT/ML VIAL SQ SCH (17:38)
[2021-07-10] MEDS: Insulin DETEMIR 100 UNIT/ML X5UNITS SUBQ SCH (19:17)
[2021-07-11] MEDS: Ipratropium/Albuterol Neb 3 ML IH SCH ×6 (04:24→23:10)
[2021-07-11] MEDS: *HR* Heparin 5,000 UNIT/ML VIAL SQ SCH ×2 (05:20→17:08)
[2021-07-11 05:21] LABS: Hematocrit 37.1 % (35.3-44.9); Hemoglobin 12.5 g/dL (11.5-15.4); Mean Corpuscular HGB Conc 33.7 g/dL (31.6-35.5); Mean Corpuscular Hemoglobin 28.2 pg (28.0-33.3); Mean Corpuscular Volume 83.7 fL (83.0-100.0); Mean Platelet Volume 10.6 fL (9.4-12.4); Platelet Count 207 K/mcL (140-400); Red Blood Count 4.43 M/mcL (3.82-4.97); Red Cell Distribution Width 12.3 % (11.5-14.5); White Blood Count 15.8 K/mcL (4.3-11.1)
[2021-07-11 05:45] LABS: Potassium 4.4 mEq/L (3.5-5.1)
[2021-07-11] MEDS: Insulin LISPRO 300 UNITS/3 ML VIAL SUBQ SCH ×4 (07:27→21:07)
[2021-07-11] MEDS: cefTRIAXone 1,000 MG in 0.9 % Sodium Chloride 10 ML IVP SCH (07:27)
[2021-07-11] MEDS: predniSONE 20 MG TABLET PO SCH (08:22)
[2021-07-11] MEDS: Metoprolol XL (24 HR) Succ 50 MG TAB.ER.24H PO SCH ×2 (08:22→21:06)
[2021-07-11] MEDS: amLODIPine 5 MG TABLET PO SCH (08:23)
[2021-07-11] MEDS: Isosorbide MONOnitrate (24 HR) 60 MG TAB.ER.24H PO SCH (08:23)
[2021-07-11] MEDS: Aspirin 81 MG TAB.CHEW PO SCH (08:26)
[2021-07-11] MEDS ORDERED: Tolvaptan 15 MG TABLET PO ONE (10:38)
[2021-07-11] MEDS: Insulin DETEMIR 100 UNIT/ML X5UNITS SUBQ SCH (21:07)
[2021-07-12 02:04] LABS: Hematocrit 38.5 % (35.3-44.9); Hemoglobin 12.9 g/dL (11.5-15.4); Mean Corpuscular HGB Conc 33.5 g/dL (31.6-35.5); Mean Corpuscular Hemoglobin 28.5 pg (28.0-33.3); Mean Platelet Volume 10.4 fL (9.4-12.4); Platelet Count 215 K/mcL (140-400); Red Blood Count 4.53 M/mcL (3.82-4.97); Red Cell Distribution Width 12.4 % (11.5-14.5); White Blood Count 15.6 K/mcL (4.3-11.1)
[2021-07-12 02:28] LABS: Calcium 9.5 mg/dL (8.6-10.3); Potassium 4.7 mEq/L (3.5-5.1)
[2021-07-12] MEDS: Ipratropium/Albuterol Neb 3 ML IH SCH ×6 (03:41→23:45)
[2021-07-12] MEDS: *HR* Heparin 5,000 UNIT/ML VIAL SQ SCH ×2 (06:53→16:29)
[2021-07-12] MEDS: Insulin LISPRO 300 UNITS/3 ML VIAL SUBQ SCH ×4 (07:56→21:40)
[2021-07-12] MEDS ORDERED: D5% in Water 1,000 ML IVC PRN (10:22)
[2021-07-12] MEDS ORDERED: *HR* Dextrose 50 % in Water (Syg) 50 ML SYRINGE IVP PRN (10:22)
[2021-07-12] MEDS ORDERED: Dextrose 4 GM Chewable Tablets PO PRN ×2 (10:22)
[2021-07-12] MEDS: lisinopriL 10 MG TABLET PO SCH (10:59)
[2021-07-12] MEDS: amLODIPine 5 MG TABLET PO SCH (10:59)
[2021-07-12] MEDS: Isosorbide MONOnitrate (24 HR) 60 MG TAB.ER.24H PO SCH (10:59)
[2021-07-12] MEDS: predniSONE 20 MG TABLET PO SCH (10:59)
[2021-07-12] MEDS: Aspirin 81 MG TAB.CHEW PO SCH (10:59)
[2021-07-12] MEDS: Metoprolol XL (24 HR) Succ 50 MG TAB.ER.24H PO SCH ×2 (11:07→21:39)
[2021-07-12] MEDS: Magnesium Oxide 400 MG TABLET PO SCH ×2 (11:07→21:39)
[2021-07-12] MEDS ORDERED: Menthol 1 EACH LOZENGE MM PRN (11:44)
[2021-07-12] MEDS ORDERED: 0.9 % Sodium Chloride 500 ML IVC ONE (16:09)
[2021-07-12] MEDS ORDERED: Insulin LISPRO 300 UNITS/3 ML VIAL SUBQ ONE (16:52)
[2021-07-12 17:05] LABS: Calcium 8.3 mg/dL (8.6-10.3); Potassium 5.3 mEq/L (3.5-5.1)
[2021-07-12] MEDS: Calcium Gluconate 1gm/50mL 1 GM/50 ML BAG IVPB SCH ×2 (17:29→18:31)
[2021-07-12] MEDS: Insulin DETEMIR 100 UNIT/ML X5UNITS SUBQ SCH (21:39)
[2021-07-13 02:16] LABS: Hematocrit 35.2 % (35.3-44.9); Hemoglobin 11.7 g/dL (11.5-15.4); Mean Corpuscular HGB Conc 33.2 g/dL (31.6-35.5); Mean Corpuscular Hemoglobin 28.7 pg (28.0-33.3); Mean Corpuscular Volume 86.5 fL (83.0-100.0); Mean Platelet Volume 10.4 fL (9.4-12.4); Platelet Count 217 K/mcL (140-400); Red Blood Count 4.07 M/mcL (3.82-4.97); Red Cell Distribution Width 12.7 % (11.5-14.5); White Blood Count 16.5 K/mcL (4.3-11.1)
[2021-07-13 02:38] LABS: Calcium 9.1 mg/dL (8.6-10.3); Potassium 4.8 mEq/L (3.5-5.1)
[2021-07-13] MEDS: Ipratropium/Albuterol Neb 3 ML IH SCH ×6 (04:02→23:40)
[2021-07-13] MEDS: *HR* Heparin 5,000 UNIT/ML VIAL SQ SCH ×2 (05:32→18:01)
[2021-07-13] MEDS: Insulin LISPRO 300 UNITS/3 ML VIAL SUBQ SCH ×4 (08:34→22:11)
[2021-07-13] MEDS: Aspirin 81 MG TAB.CHEW PO SCH (08:59)
[2021-07-13] MEDS: lisinopriL 10 MG TABLET PO SCH (08:59)
[2021-07-13] MEDS: amLODIPine 5 MG TABLET PO SCH (08:59)
[2021-07-13] MEDS: Isosorbide MONOnitrate (24 HR) 60 MG TAB.ER.24H PO SCH (08:59)
[2021-07-13] MEDS: Magnesium Oxide 400 MG TABLET PO SCH ×2 (08:59→22:11)
[2021-07-13] MEDS: Metoprolol XL (24 HR) Succ 50 MG TAB.ER.24H PO SCH ×2 (08:59→22:11)
[2021-07-13] MEDS: predniSONE 20 MG TABLET PO SCH (08:59)
[2021-07-13] MEDS: Chloraseptic Spray 177 ML BOTTLE MM PRN (10:08)
[2021-07-13] MEDS ORDERED: *HR* Midazolam HCl 2 MG/2 ML VIAL ONE (15:32)
[2021-07-13] MEDS ORDERED: 0.9 % Sodium Chloride 1,000 ML ONE (15:32)
[2021-07-13] MEDS ORDERED: *HR* Heparin 10,000 UNIT/10 ML VIAL ONE (15:32)
[2021-07-13] MEDS ORDERED: Heparin 1,000 UNITS/500 mL 500 ML ONE (15:32)
[2021-07-13] MEDS ORDERED: *HR* FentaNYL (PF) 100 MCG/2 ML VIAL ONE (15:32)
[2021-07-13] MEDS ORDERED: ISOVUE-370 200 ML INFUS..BTL ONE (15:32)
[2021-07-13] MEDS ORDERED: Nitroglycerin 1,000 MCG/5 ML VIAL IV ONE (15:32)
[2021-07-13] MEDS ORDERED: Tirofiban 12.5 MG/250ML 12.5 MG/250 ML BAG ONE (16:44)
[2021-07-13] MEDS ORDERED: *HR* Nitroprusside 50 MG VIAL IVC ONE (16:52)
[2021-07-13] MEDS ORDERED: D5% in Water 250 ML ONE (16:54)
[2021-07-13] MEDS ORDERED: *HR* Ticagrelor 90 MG TABLET ONE (16:57)
[2021-07-13] MEDS ORDERED: Tirofiban 12.5 MG/250ML 12.5 MG/250 ML BAG IVC SCH (18:15)
[2021-07-13] MEDS: *HR* Ticagrelor 90 MG TABLET PO SCH (22:11)
[2021-07-13] MEDS: Insulin DETEMIR 100 UNIT/ML X5UNITS SUBQ SCH (22:11)
[2021-07-14 01:21] LABS: Alpha 2 Globulin (PEP) 1.08 g/dL (0.48-1.05)
[2021-07-14 01:47] LABS: Hematocrit 34.2 % (35.3-44.9); Hemoglobin 11.6 g/dL (11.5-15.4); Mean Corpuscular HGB Conc 33.9 g/dL (31.6-35.5); Mean Corpuscular Hemoglobin 28.8 pg (28.0-33.3); Mean Corpuscular Volume 84.9 fL (83.0-100.0); Mean Platelet Volume 10.4 fL (9.4-12.4); Platelet Count 224 K/mcL (140-400); Red Blood Count 4.03 M/mcL (3.82-4.97); Red Cell Distribution Width 12.9 % (11.5-14.5); White Blood Count 18.1 K/mcL (4.3-11.1)
[2021-07-14 02:00] LABS: Calcium 8.9 mg/dL (8.6-10.3); Potassium 4.5 mEq/L (3.5-5.1)
[2021-07-14] MEDS: Ipratropium/Albuterol Neb 3 ML IH SCH ×4 (04:37→15:33)
[2021-07-14] MEDS: *HR* Heparin 5,000 UNIT/ML VIAL SQ SCH (06:13)
[2021-07-14] MEDS ORDERED: Acetaminophen 325 MG TABLET PO ONE (06:18)
[2021-07-14 06:54] VITALS: TEMP 98.5
[2021-07-14 07:31] LABS: IFE Reflexed NOT DONE
[2021-07-14] MEDS: Insulin LISPRO 300 UNITS/3 ML VIAL SUBQ SCH ×2 (08:34→12:10)
[2021-07-14] MEDS: Metoprolol XL (24 HR) Succ 50 MG TAB.ER.24H PO SCH (08:35)
[2021-07-14] MEDS: amLODIPine 5 MG TABLET PO SCH (08:35)
[2021-07-14] MEDS: *HR* Ticagrelor 90 MG TABLET PO SCH (08:35)
[2021-07-14] MEDS: Isosorbide MONOnitrate (24 HR) 60 MG TAB.ER.24H PO SCH (08:35)
[2021-07-14] MEDS: lisinopriL 10 MG TABLET PO SCH (08:36)
[2021-07-14] MEDS: Aspirin 81 MG TAB.CHEW PO SCH (08:36)
[2021-07-14] MEDS: Magnesium Oxide 400 MG TABLET PO SCH (08:36)
[2021-07-14] MEDS ORDERED: predniSONE 20 MG TABLET PO SCH (09:00)
[2021-07-14] MEDS ORDERED: Nitroglycerin 0.4 MG TAB.SUBL SL PRN (10:23)
[2021-07-14 11:39] VITALS: BP 103/62; PULSE 87; O2SAT 96
[2021-07-15 11:27] LABS: Magnesium 1.3 mg/dL (1.6-2.6)
== END 2021-07-14 15:50 | disposition home health service (06) | DRG 710 ==
LOC: EMEROOARM 18:48 → ICNU 18:48 → 2NNU 23:46 → SUATTDRO 23:47 → 2NNU 07-07 00:35 → 2ANU 07-11 13:26
PROVIDERS: ADMIT Student in an Organized Health Care Education/Training Program; ATTEND Family Medicine